=== PATIENT | female | born 1960 | race Two or more races ===

== ENCOUNTER 2025-08-02 21:13 | Inpatient (IN) | payer MEDICARE, BC, SELFPAY ==
[2025-08-02 22:04] VITALS: BP 168/85; PULSE 64; RESP 18; TEMP 36.7; O2SAT 100
--- NOTE | 2025-08-02 22:28 | PD.EDRME ---
Rapid Medical Screening Exam RME Arrival date/time: 08/02/25 21:13 65F with history of ESRD presents to ED with peritoneal cath/tube poking out of stomach. Chief Complaint: General Adult/Misc Complain Time Seen by Provider: 08/02/25 22:30 Vital signs: Vital Signs Temperature 98.0 F 08/02/25 22:04 Pulse Rate 64 08/02/25 22:04 Respiratory Rate 18 08/02/25 22:04 Blood Pressure 168/85 H 08/02/25 22:04 Pulse Oximetry (%) 100 08/02/25 22:04 Oxygen Delivery Method Room Air 08/02/25 22:04 Exam: Well-appearing Clinical Impression: Cath dysfuction vs need for IR
--- NOTE | 2025-08-02 23:45 | PC.NURSE ---
Pt presented from Home with family member c/o abd pain at dialysis cath site, tube protruding and purulent drainage from site, wound bed has some noted edema, redness and foul odor. Pt is a/o 4, gcs 15 verbalizes all needs VSS at this time
[2025-08-03] VITALS (25 sets, daily range): BP systolic 114–152; BP diastolic 60–85; PULSE 53–585; RESP 14–18; TEMP 36.3–36.9; O2SAT 94–100
--- NOTE | 2025-08-03 | XR_ITS ---
MRI abdomen, without contrast. MRCP Date and time of exam: August 03, 2025, 1812 hours INDICATIONS: Upper abdominal pain this week, gallstones, thickened gallbladder wall 0.37 cm, enlarged common bile duct 8 mm on gallbladder sonogram today Technique: Multiple axial and coronal images of the abdomen have been obtained with the Siemens 1.5T MRI scanner. Images obtained included T1 weighted transverse images, T2-weighted transverse images, T2-weighted transverse images fat-suppressed, T2 weighted haste fat suppressed transverse images, T1 weighted images, in and out of phase images, T2-weighted coronal images, breath hold, T2 weighted haze coronal images as well as T2 weighted coronal thick slab images, MRCP. Findings: Mild intrahepatic biliary tract dilatation Multiple gallstones No definite gallbladder wall edema Abnormal enlargement common hepatic duct 9 mm Common bile duct 7 mm Truncation of the distal common bile duct, meniscus defect, coronal image 12, 4 mm, consistent with impacted stone No pancreatitis Spleen is not enlarged No hydronephrosis, end-stage atrophic atrophic left kidney IMPRESSION: Cholelithiasis, negative for cholecystitis Extrahepatic biliary tract obstruction secondary to 4 mm impacted stone in the distal common bile duct, recommend ERCP follow-up
[2025-08-03 03:35] LABS: Basophils # (Auto) 0.1 Thou/mm3 (0.0-0.2); Basophils % (Auto) 1 % (0-2.5); Eosinophils # (Auto) 0.8 Thou/mm3 (0.0-0.5); Eosinophils % (Auto) 13 % (0-10); Hematocrit 34.1 % (36.0-46.0); Hemoglobin 10.7 g/dL (12.0-16.0); Immature Granulocytes Auto 0.01 Thou/mm3 (0.00-0.00); Lymphocytes # (Auto) 1.2 Thou/mm3 (1.0-4.8); Lymphocytes % (Auto) 20 % (10-50); Mean Corpuscular HGB Conc 31.4 g/dl (31.0-37.0); Mean Corpuscular Hemoglobin 30.4 pg (25.0-35.0); Mean Corpuscular Volume 97 fL (80-100); Monocytes # (Auto) 0.5 Thou/mm3 (0.0-0.8); Monocytes % (Auto) 8 % (0-12); Neutrophils # (Auto) 3.6 Thou/mm3 (1.8-7.7); Neutrophils % (Auto) 58 % (37-80); Nucleated Red Blood Cell # 0.00 Thou/mm3 (0.00-0.00); Nucleated Red Blood Cell % 0 /100 WBC (0); Platelet Count 219 Thou/mm3 (140-440); RDW Standard Deviation 60.8 fL (36.4-46.3); Red Blood Count 3.52 Miln/mm3 (4.00-5.20); White Blood Count 6.1 Thou/mm3 (3.6-11.0)
--- NOTE | 2025-08-03 03:42 | EDNOTE_ITS ---
ED General RME/HPI General Chief complaint: General Adult/Misc Complain Stated complaint: PERITONEAL DIALYSIS TUBE PROBLEM Time Seen by Provider: 08/02/25 22:30 Source: patient and family Arrival date/time: 08/02/25 21:13 Mode of arrival: ambulatory Limitations: no limitations RME / HPI RME / HPI narrative: 65F with history of ESRD presents to ED with peritoneal cath/tube poking out of stomach. The patient has a history of peritoneal catheter placement back in 2013 but currently is not being used because she has a chest wall catheter that is used for her hemodialysis, Thursday. Past medical history: Hypertension, end-stage renal disease on hemodialysis Thursday, history of transplant, peritoneal catheter. PSurg: Peritoneal dialysis catheter in 2013. History of nephrectomy History of panniculectomy 2020. Renal physician is Dr. Palma Patient also has a vascular who manages the catheter Sg Gatica Exam: Well-appearing Impression: Cath dysfuction vs need for IR Related Data Home Medications ?Medication ?Instructions ?Recorded ?Confirmed amlodipine 10 mg tablet (Norvasc) 10 mg PO QDAY #0 tab s 12/19/15 ferrous sulfate 325 mg (65 mg 325 mg PO BIDWM #0 tabs 01/16/16 iron) tablet (Feosol) Ondansetron Hcl * (ZOFRAN *) 4 mg PO Q12H PRN NAUSEA O R 01/17/16 VOMITING #0 tabs Previous Rx's ?Medication ?Instructions ?Recorded Hydrocodone/Acetaminophen * (NORCO 1 tab PO Q6H PRN AB DOMINAL PAIN 01/17/16 7.5/325 *) #30 tabs Allergies Allergy/AdvReac Type Severity Reaction Status Date / Time No Known Allergies Allergy Verified 08/02/25 21:15 Past Medical History Past Medical History NEUROLOGIC: Negative Neurological Disorders CARDIAC: Negative Cardiac Disorders or Congestive Heart Failure RESPIRATORY: Negative Respiratory Disorders or Chronic Obstructive Pulmonary Disease (COPD) GASTROINTESTINAL: Negative Gastrointestinal Disorders GENITOURINARY: Positive Genitourinary Disorders, Chronic Kidney Disease, Renal Disease, Kidney Stones (staghorn stone november 2024) and Dialysis; Negative Polycystic Kidney Disease, Neurogenic Bladder or Inguinal Hernia REPRODUCTIVE: Negative Pelvic Inflammatory Disease MUSCULOSKELETAL: Negative Musculoskeletal Disorders ENDOCRINE: Negative Endocrine Disorders, Diabetes Mellitus Type 1 or Diabetes Mellitus Type 2 HEMATOLOGIC: Positive Blood Disorders and Anemia; Negative Leukemia, Hemophilia, Thalassemia, Sickle Cell Disease or Clotting Problems OTHER HISTORY: Positive Blood Transfusions; Negative Autoimmune Disease, Blood Transfusion Reaction, Anesthesia Reactions, Organ Transplant, MRSA, Clostridium Difficile or Cancer Family History FAMILY HISTORY: Negative Family Psychiatric Problems, Family Respiratory Disorders, Family Cardiac Disorders, Family Gastrointestinal Problems, Family Genitourinary Problems, Family Endocrine Disorders, Family Reproductive Disorders or Family Musculoskeletal Disorders Surgical History SURGICAL: Positive Nephrectomy (kidney fused with colon); Negative Cardiac Surgery, Endocrine Surgery, Thyroidectomy, Ear Surgery, Bladder Sling, Ureteral Stent, Joint Replacement, Neurologic Surgery, Brain Shunt, Lumpectomy, Hysterectomy, Tubal Ligation, Section, Organ Transplant or ESWL Social History SMOKING STATUS: Never smoker ED Exam General Limitations: Present no limitations Course Orders Category Date Time Status CT Screening NOW Care 08/03/25 05:[address] abdomen pelvis w con Stat Exams 08/03/25 04:49 Ordered CBC Stat Lab 08/03/25 03:27 Completed CMP [Comprehensive Metabolic Panel] Stat Lab 08/03/25 03:27 Completed PT [Prothrombin Time with INR] Stat Lab 08/03/25 03:27 Completed PTT [Partial Thromboplastin Time] Stat Lab 08/03/25 03:27 Completed Vital Signs Vital signs: Vital Signs Temperature 98.0 F 08/02/25 22:04 Pulse Rate 64 08/02/25 22:04 Respiratory Rate 18 08/02/25 22:04 Blood Pressure 168/85 H 08/02/25 22:04 Pulse Oximetry (%) 100 08/02/25 22:04 Oxygen Delivery Method Room Air 08/02/25 22:04 Discharge Plan Prescriptions/Referrals Prescriptions/Med Rec: No Action amlodipine [Norvasc] 10 MG tablet 10 mg PO QDAY Qty: 0 ferrous sulfate [Feosol] 1 TAB tablet 325 mg PO BIDWM Qty: 0 Ondansetron Hcl * (ZOFRAN *) 4 MG tablet 4 mg PO Q12H PRN (Reason: NAUSEA OR VOMITING) Qty: 0 Hydrocodone/Acetaminophen * (NORCO 7.5/325 *) 1 TAB tablet 1 tab PO Q6H PRN (Reason: ABDOMINAL PAIN) Qty: 30 0RF Referrals: Ingrid Putnam DO [Primary Care Provider] - In 1 week Problem List Clinical Impression: Complicated wound infection Patient/Caregiver Discharge Instructions Print Language: Arabic MDM Narrative MDM hospital course (for use when minimal MDM required): 65F with history of ESRD presents to ED with peritoneal cath/tube poking out of stomach. The patient has a history of peritoneal catheter placement back in 2013 but currently is not being used because she has a chest wall catheter that is used for her hemodialysis, Thursday. Past medical history: Hypertension, end-stage renal disease on hemodialysis Thursday, history of transplant, peritoneal catheter. PSurg: Peritoneal dialysis catheter in 2013. History of nephrectomy History of panniculectomy 2020. Renal physician is Dr. Palma Patient also has a vascular who manages the catheter Sg Gatica Patient presents with an open wound on the abdomen and right where the peritoneal dialysis catheter is in place. There is obvious minimal discharge which is yellow. It is minimally tender overlying the area. Otherwise on the lower bikini line area she has a pannicular fold well-healed scar. Signed out to Dr. Street at 0600 pending results of the CT scan, the patient will need hemodialysis because she is getting CT with IV contrast, and final disposition for possible IV antibiotics. Clinical Information Provided by: family Medical Records reviewed None Labs/Rad/Tests considered, not ordered None Chronic Illness/Social Conditions which may negatively complicate care or outcome(s)-explain: other (End-stage renal disease on hemodialysis) Explain: Past medical history: Hypertension, end-stage renal disease on hemodialysis Thursday, history of transplant, peritoneal catheter. PSurg: Peritoneal dialysis catheter in 2013. History of nephrectomy History of panniculectomy 2020. EKG EKG not done Labs Labs: interpreted by ut Lab(s) Interpretation(s): White count is 6, hemoglobin 10/34, consistent with anemia, platelets 219 and normal. Sodium 142 normal, potassium 4.8. Chloride 105. CO2 normal at 27. BUN/creatinine elevated at 39/6.0. This consistent with chronic renal sufficiency on end-stage hemodialysis. Glucose is normal at 86. LFTs are normal. Imaging Imaging interpretation: interpreted by ut Medication Administration(s) As above. Diagnosis Differential Diagnosis ED Complaint MDM: Abscess, wound infection, dehiscence, catheter malfunction
[2025-08-03 03:51] LABS: INR 1.0 (0.9-1.3); Partial Thromboplastin Time 31.4 Seconds (22.0-36.0); Prothrombin Time 11.0 Seconds (9.0-12.2)
[2025-08-03 03:54] LABS: Alanine Aminotransferase 10 U/L (10-49); Albumin, Serum 3.2 gm/dL (3.4-4.8); Albumin/Globulin Ratio 1.0 (1.2-2.2); Alkaline Phosphatase 106 U/L (46-116); Anion Gap 10 (7-16); Aspartate Amino Transferase 21 U/L (0-34); BUN/Creatinine Ratio 7 Ratio (12-20); Bilirubin,Total 0.3 mg/dL (0.3-1.2); Blood Urea Nitrogen 39 mg/dL (9-23); Calcium 8.4 mg/dL (8.3-10.6); Calcium (Corrected) 9.0 mg/dL (8.5-10.1); Carbon Dioxide 27.5 mMol/L (20.0-31.0); Chloride 105 mMol/L (98-107); Creatinine (Component) 6.0 mg/dL (0.6-1.3); Globulin 3.3 gm/dL (2.3-3.5); Glucose 86 mg/dL (74-106); Osmolality,Calculated 291 (275-295); Potassium 4.8 mMol/L (3.4-5.1); Sodium 142 mMol/L (136-145); Total Protein 6.5 gm/dL (5.7-8.2); eGFR 7 See Note
--- NOTE | 2025-08-03 04:49 | XR_ITS ---
Examination: CT abdomen with intravenous contrast CT pelvis with intravenous contrast 2-D coronal reconstructions 2-D sagittal reconstructions Date and time of exam: August 03, 2025, 0744 hours INDICATIONS: Generalized abdominal pain 2 weeks. CTDI: vol (mGy) 7.67 DLP: (mGycm) 418 Technique: Multiple axial sections of the abdomen and pelvis have been obtained. 64 slice high-resolution scanner used. 3 mm axial sections have been obtained, post intravenous injection 60 cc Isovue 370 2-D sagittal, coronal reconstructions obtained. Low dose protocols were performed. One or more of the following dose reduction techniques were used; automated exposure control, adjustment of the mA and/or KV according to patient size, use of iterative reconstruction technique. Findings: Mild enlargement cardiac contour Retrocardiac gastric hernia 14 mm pulmonary nodule irregular margins right lower lobe, image 21 Minimal pleural disease Cirrhosis, liver nodular in contour Distended gallbladder with gallstones No splenic lesion Enlargement common bile duct 9 mm no definite stones No pancreatic mass Aorta normal size No right kidney visualize End-stage calcified atrophic left kidney Aorta normal size Anasarca No bowel obstruction Peritoneal dialysis catheter Mass in the anterior pelvic wall, axial image 127, coronal image 94, with necrotic center, measuring 26 x 29 x 35 mm Atrophic calcified uterus No bowel obstruction Contracted urinary bladder Cortical erosion involving contiguous margins L3-L4 moderate narrowing hip joints IMPRESSION: 14 mm pulmonary nodule irregular margins right lower lobe, consider CT chest without contrast follow-up Cirrhosis Recommend about a biliary sonography to assess distended gallbladder with gallstones, enlarged common bile duct End-stage calcified atrophic left kidney No bowel obstruction Peritoneal dialysis catheter Necrotic mass in the anterior pelvic wall, 26 x 29 x 35 mm, differential would include abscess
[2025-08-03] MEDS: VANCOMYCIN/NS 1 GM IVPB 200 ML IV (06:23)
--- NOTE | 2025-08-03 09:12 | XR_ITS ---
Examination: Abdomen sonogram, Limited Date and time of exam: August 03 g in 2024, 1402 hours INDICATIONS: Distended gallbladder, gallstones, enlarged common bile duct on CT abdomen study today Technique: Real-time barrett scale transabdominal sonographic images of the upper abdomen obtained. Findings: Gallstones Gallbladder wall 0.37 cm no edema Common bile duct enlarged 0.8 cm no stones Pancreatic head 2.9 cm Liver 14.5 cm no liver lesions Normal hepatopetal portal venous flow Patent IVC IMPRESSION: Cholelithiasis Borderline thickening gallbladder wall Enlarged common bile duct If biliary colic is a clinical consideration, suggest MRCP follow-up
--- NOTE | 2025-08-03 10:01 | ESCONSULT_ITS ---
HPI Data of Consult Consult date: 08/03/25 Primary Care Provider: Ingrid Putnam DO Consult Narrative Reason for consult: ESRD, need for HD History of present illness: Patient is a 65 year old female with past medical history of ESRD s/p right nephrectomy on dialysis //Thu who presents to the ED for protrusion of peritoneal catheter at right lower abdomen, originally placed in 2013. Per daughter at bedside, wound has been ongoing for the past month, previously received IV abx at dialysis center 2 weeks ago. Originally also had wound that opened below catheter site but healed without intervention. Had appointment on 08/[address] Ng in [place] for removal of peritoneal catheter. Patient has right chest HD catheter in place already. Patient is compliant with dialysis sessions, lives in [place]. Last HD session on Thursday. CT A/P with contrast showed necrotic mass in anterior pelvic wall suspicious for abscess at catheter site, also noted end stage calcified atrophic left kidney. Received urgent HD today. Surgeon Dr. Thomas will schedule patient for infected PD catheter removal and abscess drainage tomorrow morning. Given vanc in ED. Nephrology consulted for dialysis s/p CT A/P with contrast. Past Medical History: as above Family History: non contributory Surgical History: Right nephrectomy, panniculectomy (2020) Social History: Denies history of smoking, denies current alcohol use, denies recreational drug use Current Medications: pending med rec Allergies: No known drug allergies cc:: cc: Exam Vital Signs Temp Pulse Resp BP Pulse Ox O2 Del Method 98.4 F 60 16 137/78 H 98 Room Air 08/03/25 08:58 08/03/25 08:58 08/03/25 08:58 08/03/25 08:58 08/03/25 08:58 08/03/25 08:58 Narrative Exam Physical Exam General: Awake and in no acute distress. Conversational and non-toxic appearing. HEENT: Normocephalic, atraumatic, mucous membranes moist. Heart: Regular rate and rhythm, normal S1 and S2, no murmurs. Lungs: Clear to auscultation with no wheezing or crackles. Abdomen: Soft, nondistended, nontender, positive bowel sounds. No guarding or rebound tenderness. Peritoneal dialysis catheter in right lower abdomen, also protruding from open wound medially, draining non pustular fluid, not malodorous but has surrounding erythema. Mild tenderness. Another similar but healed wound below catheter site. Neurologic: Alert and oriented x3, no gross neurological deficit, and patient able to move all 4 extremities. Extremities: No edema. Skin: No rash or ecchymoses. Results Labs 08/04/25 04:10 08/04/25 04:10 Labs: Short CBC 08/03/25 Range/Units 03:27 WBC 6.1 (3.6-11.0) Thou/mm3 Hgb 10.7 L (12.0-16.0) g/dL Hct 34.1 L (36.0-46.0) % Plt Count 219 (140-440) Thou/mm3 BMP 08/03/25 03:27 Sodium 142 Potassium 4.8 Chloride 105 Carbon Dioxide 27.5 BUN 39 H Creatinine 6.0 H* Glucose 86 Calcium 8.4 Liver Function 08/03/25 Range/Units 03:27 Total Bilirubin 0.3 (0.3-1.2) mg/dL AST 21 (0-34) U/L ALT 10 (10-49) U/L Alkaline Phosphatase 106 (46-116) U/L Albumin 3.2 L (3.4-4.8) gm/dL Quality Measures Quality Measures none Advance care planning discussed with:: patient Medications Home Medications and Allergies Home Medications ?Medication ?Instructions ?Recorded ?Confirmed ?Type amlodipine 10 mg tablet (Norvasc) 10 mg PO QDAY #0 tab s 12/19/15 08/04/25 History ferrous sulfate 325 mg (65 mg 325 mg PO BIDWM #0 tabs 01/16/16 08/04/25 History iron) tablet (Feosol) Ondansetron Hcl * (ZOFRAN *) 4 mg PO Q12H PRN NAUSEA O R 01/17/16 08/04/25 History VOMITING #0 tabs calcium acetate 667 mg tablet 667 mg PO TIDWMEAL 08/0408/04/25 History midodrine 10 mg tablet 10 mg PO BID PRN low blood p ressure 08/04/25 08/04/25 History sertraline 50 mg tablet 50 mg PO DAILY 08/04/2501/22 History vitamin B complex-vitamin C-folic 1 tab PO QDAY 08/04/25 History acid 0.8 mg tablet (Dialyvite 800) Allergies Allergy/AdvReac Type Severity Reaction Status Date / Time PUMPKIN SEEDS Allergy Severe SWELLING Uncoded 08/04/25 05:57 AROUND MOUTH AND ITCHINESS Visit Medications Albumin Human (Albuminex 25% Ivpb) 25 gm in 100 mls @ 100 mls/hr IV Q30MIN PRN PRN Reason: DIALYSIS Discontinued Medications Vancomycin/Sodium Chloride (Vancomycin/Ns 1 Gm Ivpb) 200 mls @ 120 mls/hr IV X1 ONE Stop: 08/03/25 07:54 Last Infusion: 08/03/25 08:47 Dose: Infused Pharmacy Consult (Vancomycin Pharmacy To Dose 1 Each Each) 1 each IV X1 ONE Stop: 08/03/25 05:38 Assessment & Plan Plan Patient is a 65 year old female with past medical history of ESRD s/p right nephrectomy on dialysis //Thu who presents to the ED for protrusion of peritoneal catheter at right lower abdomen. Nephrology consulted for urgent dialysis s/p CT with contrast. #ESRD on dialysis TTS #S/p right nephrectomy - CT A/P with contrast showed necrotic mass in anterior pelvic wall suspicious for abscess at catheter site, also noted end stage calcified atrophic left kidney. Plan: - Scheduled for urgent dialysis today #Necrotic mass at anterior pelvic wall - Has had ongoing wounds around catheter site for the past 3 weeks per patient daughter. Completed IV abx course at dialysis session about 2 weeks ago. Initially, she developed open wound below catheter site, now catheter is now protruding from open wound medially from insertion site. - PD catheter initially placed in 2013. Scheduled for removal with surgeon Dr. Ng in [place] on 08/09. Plan: - Surgery consulted by ED, will remove PD catheter and drain abscess tomorrow Thank you for your consultation, please do not hesitate to reach out if you have any question or concern Patient plan of care was discussed with the attending physician, Dr. Palma. Clarisa Buck DO, PGY-1 Attending Provider Attestation/Addendum Patient currently seen and examined with resident physician Dr. Buck. Note reviewed, agree with findings and recommendations. Care discussed with Dr. Thomas-Will DC PD catheter today. Patient with infected PD catheter site n.p.o. after midnight. Next dialysis scheduled for tomorrow Patient from [place].
--- NOTE | 2025-08-03 10:35 | PD.EDADDENDU ---
Emergency Room Addendum Addendum Narrative: 0600: Care assumed from Dr. Davis, the previous shift emergency physician. Past medical, surgical, social and family history reviewed. Vitals and home medications reviewed. I will assume the care of the patient at this time, pending CTr, hemodialysis, and final disposition. Please refer to the emergency department record for history and examination from initial visit.?The following addendum documentation note is intended to reflect any pending information, findings, or radiology results not included in the patient?s initial chart. I spoke with communications advisor Dr. Palma. Discussed patients PMHx, HPI, ED course, exam findings, labs results and need for dialysis after receiving contrast. Dr. Palma states she will arrange for the patient to receive dialysis. CT abdomen/pelvis shows Necrotic mass in the anterior pelvic wall, 26 x 29 x 35 mm, differential would include abscess and I consulted with general surgeon Dr. Thomas. Discussed patients PMHx, HPI, ED course, exam findings, labs, and radiology results. States he will take the patient to surgery tomorrow. Gallbladder ultrasound was performed and shows enlarged common bile duct. Total bilirubin is 0.3, AST 21, ALT 10, alkaline phosphate 106. MRCP was ordered. 1800p: Care signed out to Dr. Bourne pending MRCP and final disposition. RADIOLOGY Ordering Physician: Pura Davis MD Date of Service: 08/03/25 Procedure(s): CT abdomen pelvis w con Accession Number(s): [id number] cc: Ingrid Putnam DO; Ismael Rojas MD; Pura Davis MD~ Examination: CT abdomen with intravenous contrast CT pelvis with intravenous contrast 2-D coronal reconstructions 2-D sagittal reconstructions Date and time of exam: August 03, 2025, 0744 hours INDICATIONS: Generalized abdominal pain 2 weeks. CTDI: vol (mGy) 7.67 DLP: (mGycm) 418 Technique: Multiple axial sections of the abdomen and pelvis have been obtained. 64 slice high-resolution scanner used. 3 mm axial sections have been obtained, post intravenous injection 60 cc Isovue 370 2-D sagittal, coronal reconstructions obtained. Low dose protocols were performed. One or more of the following dose reduction techniques were used; automated exposure control, adjustment of the mA and/or KV according to patient size, use of iterative reconstruction technique. Findings: Mild enlargement cardiac contour Retrocardiac gastric hernia 14 mm pulmonary nodule irregular margins right lower lobe, image 21 Minimal pleural disease Cirrhosis, liver nodular in contour Distended gallbladder with gallstones No splenic lesion Enlargement common bile duct 9 mm no definite stones No pancreatic mass Aorta normal size No right kidney visualize End-stage calcified atrophic left kidney Aorta normal size Anasarca No bowel obstruction Peritoneal dialysis catheter Mass in the anterior pelvic wall, axial image 127, coronal image 94, with necrotic center, measuring 26 x 29 x 35 mm Atrophic calcified uterus No bowel obstruction Contracted urinary bladder Cortical erosion involving contiguous margins L3-L4 moderate narrowing hip joints IMPRESSION: 14 mm pulmonary nodule irregular margins right lower lobe, consider CT chest without contrast follow-up Cirrhosis Recommend about a biliary sonography to assess distended gallbladder with gallstones, enlarged common bile duct End-stage calcified atrophic left kidney No bowel obstruction Peritoneal dialysis catheter Necrotic mass in the anterior pelvic wall, 26 x 29 x 35 mm, differential would include abscess Dictated By: Ismael Rojas MD Signed By: <Electronically signed by Ismael Rojas MD in [place]> 08/03/25 0804
[2025-08-03 11:50] LABS: Hepatitis A Antibody IgM Non Reactive (Non React); Hepatitis B Core Antibody IgM Non Reactive (Non React); Hepatitis B Surface Ab Reactive (Immune) (Immune); Hepatitis B Surface Antigen Non Reactive (Non React); Hepatitis C Antibody Non Reactive (Non React)
--- NOTE | 2025-08-03 12:04 | PC.NURSE ---
PLASTIC MIXER INCREASED 200ML BLOUS ADMINISTERED TO CLEAR DIALYZER, UF GOAL INCREASED TO account for fluid administration as tolerated will cont. to monitor
--- NOTE | 2025-08-03 12:47 | PC.NURSE ---
TMP AND AUDIT CLERKS SUPERVISOR INCREASING 100ML BOLUS ADMINISTERED, MINOR CLOTTING TO VENOUS CHAMBER NOTED, POST FLUSH PRESSURES IMPROVED WILL CONT. TO MONITOR
[2025-08-03] MEDS: HEPARIN SOD INJ 1000 UNIT/ML VIAL 10 ML 3200 UNIT INDWELLCAT (13:10)
--- NOTE | 2025-08-03 13:58 | PC.NURSE ---
PT RETURNED FROM DIALYSIS AT THIS TIME.
--- NOTE | 2025-08-03 14:46 | PD.SURCONS ---
HPI Consult details Consult date: 08/03/25 Reason for consultation narrative: Infected peritoneal dialysis catheter History of present illness: 65-year-old female with history of hypertension, end-stage renal disease currently on hemodialysis, prior she was on peritoneal dialysis. She has had tunneled intraperitoneal peritoneal dialysis catheter placement since 2016. She has noted some skin infection with exposure of the tunneled aspect of peritoneal dialysis catheter. She has been eating and tolerating diet well, denies abdominal pain. She was noted to have gallstones with dilated CBD. MRCP revealed questionable 4 mm distal CBD stone, however her liver enzymes are normal. Review of Systems Constitutional Constitutional: Denies chills and Denies fever(s) Cardiovascular Cardiovascular: Denies chest pain Respiratory Respiratory: Denies cough Gastrointestinal Gastrointestinal: Reports abdominal pain, Denies nausea and Denies vomiting Hematologic/Lymphatic Hematologic/Lymphatic: Denies easy bleeding and Reports easy bruising Past Medical History Surgical History OTHER SURGICAL HX: Right nephrectomy, PD catheter placement, umbilical hernia repair, carpel tunnel release, panniculectomy Social History SMOKING STATUS: Never smoker SUBSTANCE USE: does not use ALCOHOL: Never Meds Home Medications and Allergies Home Medications ?Medication ?Instructions ?Recorded ?Confirmed ?Type amlodipine 10 mg tablet (Norvasc) 10 mg PO QDAY #0 tabs 12/19/15 08/04/25 History ferrous sulfate 325 mg (65 mg 325 mg PO BIDWM #0 tabs 01/16/16 08/04/25 History iron) tablet (Feosol) Ondansetron Hcl * (ZOFRAN *) 4 mg PO Q12H PRN NAUSEA OR 01/17/16 08/04/25 History VOMITING #0 tabs calcium acetate 667 mg tablet 667 mg PO TIDWMEAL 08/04/25 08/04/25 History midodrine 10 mg tablet 10 mg PO BID PRN low blood pressure 08/04/25 08/04/25 History sertraline 50 mg tablet 50 mg PO DAILY 08/04/25 08/04/25 History vitamin B complex-vitamin C-folic 1 tab PO QDAY 08/04/25 08/04/25 History acid 0.8 mg tablet (Dialyvite 800) Allergies Allergy/AdvReac Type Severity Reaction Status Date / Time PUMPKIN SEEDS Allergy Severe SWELLING Uncoded 08/04/25 05:57 AROUND MOUTH AND ITCHINESS Exam Vital Signs Temp Pulse Resp BP Pulse Ox O2 Del Method 98.4 F 60 15 146/76 H 98 Room Air 08/03/25 13:57 08/03/25 13:57 08/03/25 13:57 08/03/25 13:57 08/03/25 13:57 08/03/25 13:57 Constitutional Constitutional: no acute distress Routine Abdominal Exam Comments: Abdomen is soft and nondistended. She has an open wound on the left lower aspect of the abdomen where the PD catheter was tunneled with catheter being exposed. She also has small open wound in the left lower quadrant at her panniculectomy scar Assessment & Plan Problem List (1) Peritoneal dialysis catheter exit site infection: Status: Acute Plan Keep n.p.o. after midnight. Will plan for removal of peritoneal dialysis catheter tomorrow. Risks include but not limited to infection, bleeding, chronic nonhealing wound, need for further procedure and or operation, pneumonia and blood clot discussed with the patient and her daughter. Benefits and alternatives explained to them, all their questions answered, they agreed consented to proceed with the operation. (1) Peritoneal dialysis catheter exit site infection Qualifiers: Encounter type: initial encounter Qualified Code(s): T85.71XA - Infection and inflammatory reaction due to peritoneal dialysis catheter, initial encounter
--- NOTE | 2025-08-03 19:03 | EDNOTE_ITS ---
Emergency Room Addendum Addendum Narrative: 1800: Care assumed from Dr. Street, the previous shift emergency physician. Past medical, surgical, social and family history reviewed. Vitals and home medications reviewed. Results and treatment plan discussed. I will assume the care of the patient at this time and will follow the patient, pending MRCP. Please refer to the emergency department record for history and examination from initial visit. 65yo female who is transitioning from peritoneal to hemodialysis who noted her peritoneal catheter was eroding through her skin in the left lower abdomen. During workup, patient was found to have evidence of possible cholecystitis and MRCP was recommended. Findings included an impacted CBD stone (choledocholithiasis). This was an incidental finding as patient has likely had this condition for a period of time. In the absence of fever, toxicity, leukocytosis, or tenderness of the RUQ, will defer on immediate treatment and refer as outpatient. Regarding infected malfunction catheter, case discussed with on-call surgeon, who intends to remove it in the AM. Hospitalist to admit. Dx: cellulitis of the left lower abdomen, defunct peritoneal catheter, choledocholithiasis RADIOLOGY RESULTS: [facility] Report Signed Patient: WENDY VÁSQUEZ. Record#: [id number] Birthdate: 1960 Age/Sex: 65 / F Location: [facility] Attending Dr: Ordering Physician: Aric Street MD Date of Service: 08/03/25 Procedure(s): MR MRCP Accession Number(s): [id number] cc: Aric Street MD; Ingrid Putnam DO; Ismael Rojas MD~ MRI abdomen, without contrast. MRCP Date and time of exam: August 03, 2025, 1812 hours INDICATIONS: Upper abdominal pain this week, gallstones, thickened gallbladder wall 0.37 cm, enlarged common bile duct 8 mm on gallbladder sonogram today Technique: Multiple axial and coronal images of the abdomen have been obtained with the Siemens 1.5T MRI scanner. Images obtained included T1 weighted transverse images, T2-weighted transverse images, T2-weighted transverse images fat-suppressed, T2 weighted haste fat suppressed transverse images, T1 weighted images, in and out of phase images, T2-weighted coronal images, breath hold, T2 weighted haze coronal images as well as T2 weighted coronal thick slab images, MRCP. Findings: Mild intrahepatic biliary tract dilatation Multiple gallstones No definite gallbladder wall edema Abnormal enlargement common hepatic duct 9 mm Common bile duct 7 mm Truncation of the distal common bile duct, meniscus defect, coronal image 12, 4 mm, consistent with impacted stone No pancreatitis Spleen is not enlarged No hydronephrosis, end-stage atrophic atrophic left kidney IMPRESSION: Cholelithiasis, negative for cholecystitis Extrahepatic biliary tract obstruction secondary to 4 mm impacted stone in the distal common bile duct, recommend ERCP follow-up Dictated By: Ismael Rojas MD Signed By: <Electronically signed by Ismael Rojas MD in [place]> 08/03/251928
[2025-08-03 22:04] LABS: Alanine Aminotransferase 8 U/L (10-49); Albumin, Serum 3.2 gm/dL (3.4-4.8); Albumin/Globulin Ratio 1.0 (1.2-2.2); Alkaline Phosphatase 110 U/L (46-116); Anion Gap 10 (7-16); Aspartate Amino Transferase 21 U/L (0-34); BUN/Creatinine Ratio 6 Ratio (12-20); Bilirubin,Direct 0.1 mg/dL (0.0-0.3); Bilirubin,Total 0.2 mg/dL (0.3-1.2); Blood Urea Nitrogen 28 mg/dL (9-23); Calcium 8.4 mg/dL (8.3-10.6); Calcium (Corrected) 9.0 mg/dL (8.5-10.1); Carbon Dioxide 27.2 mMol/L (20.0-31.0); Chloride 103 mMol/L (98-107); Creatinine (Component) 4.6 mg/dL (0.6-1.3); Globulin 3.2 gm/dL (2.3-3.5); Glucose 90 mg/dL (74-106); Osmolality,Calculated 284 (275-295); Potassium 4.6 mMol/L (3.4-5.1); Sodium 140 mMol/L (136-145); Total Protein 6.4 gm/dL (5.7-8.2); eGFR 10 See Note
--- NOTE | 2025-08-03 22:40 | ESHP_ITS ---
<Statement entered by Christian Davidson MD - 08/08/25 02:35> I have personally seen and examined the patient, agree with residents assessment and plan Patient plan of care was discussed with the attending physician, Dr. Jose Rafael Davidson, PGY2 Documentation for date of: 08/03/25 HPI History of Present Illness Chief complaint: Protruding peritoneal dialysis catheter History of present illness: This patient is a 65-year-old female with a history of ESRD on HD (TTS) and status post right nephrectomy who presented to [facility] ED on 08/03 for protrusion of her peritoneal dialysis catheter at her right lower abdomen. Patient was admitted for surgical removal of peritoneal dialysis catheter. The patient initially developed this wound about a month ago, although the patient is not sure how this occurred. The patient had previously received IV antibiotics at her dialysis center about 2 weeks ago, and originally had appointment on 08/[address] Owens in [place] for removal of the peritoneal dialysis catheter, however patient noticed that the dialysis catheter has been protruding out more today and so she sought care at [facility] ED for further management. In the ED, the patient received a CT abdomen/pelvis for further investigation of her protruding peritoneal dialysis catheter, which showed an necrotic mass in the anterior pelvic wall measuring 26 x 29 x 35 mm, suggestive of an abscess. Incidentally, the patient was found to have a distended gallbladder with gallstones and a large common bile duct. This was supported with gallbladder ultrasound, and so MRCP was pursued, which showed extrahepatic biliary tract obstruction due to a 4 mm impacted stone in the distal common bile duct. The case was discussed with the general surgeon, Dr Thomas, who plans for removal of the patient's peritoneal dialysis catheter tomorrow morning and recommends outpatient ERCP instead of transferring the patient to an outside facility for ERCP as the patient has no fever, leukocytosis, jaundice, or tenderness in the right upper quadrant as to warrant an emergent transfer for ERCP. Past Surgical History: Peritoneal dialysis catheter placement in 2013 Allergies (w/ Reactions): NKDA Family History: Non-contributory Alcohol Intake: N/A Tobacco/Vape Use: N/A Other Drug Use: N/A Recent Travel History: N/A Exam Vital Signs Temp Pulse Resp BP Pulse Ox O2 Del Method 98.2 F 74 16 114/68 98 Room Air 08/03/25 20:08 08/03/25 20:08 08/03/25 20:08 08/03/25 20:08 08/03/25 20:08 08/03/25 20:08 Narrative Exam Physical Exam: General: Alert, no acute distress. Temporary dialysis catheter in right upper chest. Skin: Warm, dry, intact. Head: Normocephalic, atraumatic. Eye: Normal conjunctiva, PERRL. Throat: Oral mucosa moist. No obvious lesions in oropharynx. Cardiovascular: Regular rate and rhythm, no murmur, +S1/S2. Respiratory: Lungs are clear to auscultation, respirations unlabored, no crackles, no wheezing. Gastrointestinal: Soft, nontender, non-distended. Peritoneal dialysis catheter in left lower abdomen, also protruding from open wound medially, draining pustular fluid, not malodorous but has surrounding erythema. Significant tenderness to light palpation. Another similar but healed wound below catheter site. Extremities: No edema, no cyanosis, no clubbing. 2+ radial pulse bilaterally, 2+ pedal pulse bilaterally. Neuro: No focal deficits observed. Conversant, moving all extremities. No overt cerebellar signs/incoordination. Psychiatric: Cooperative, appropriate affect. Results: Labs 08/06/25 04:37 08/06/25 04:37 Labs: Short CBC 08/03/25 Range/Units 03:27 WBC 6.1 (3.6-11.0) Thou/mm3 Hgb 10.7 L (12.0-16.0) g/dL Hct 34.1 L (36.0-46.0) % Plt Count 219 (140-440) Thou/mm3 [facility] 08/03/25 08/03/25 03:27 21:27 Sodium 142 140 Potassium 4.8 4.6 Chloride 105 103 Carbon Dioxide 27.5 27.2 BUN 39 H 28 H Creatinine 6.0 H* 4.6 H* D Glucose 86 90 Calcium 8.4 8.4 Liver Function 08/03/25 08/03/25 Range/Units 03:27 21:27 Total Bilirubin 0.3 0.2 L (0.3-1.2) mg/dL Direct Bilirubin 0.1 (0.0-0.3) mg/dL AST 21 21 (0-34) U/L ALT 10 8 L (10-49) U/L Alkaline Phosphatase 106 110 (46-116) U/L Albumin 3.2 L 3.2 L (3.4-4.8) gm/dL Quality Measures Quality Measures VTE prophylaxis Advance care planning discussed with:: patient Medications Home Medications and Allergies Home Medications ?Medication ?Instructions ?Recorded ?Confirmed ?Type amlodipine 10 mg tablet (Norvasc) 10 mg PO QDAY #0 tab s 12/19/15 08/04/25 History Held on 08/06/25. Instructions: Hold until you follow-up with your PCP calcium acetate 667 mg tablet 667 mg PO TIDWMEAL 08/0408/04/25 History midodrine 10 mg tablet 10 mg PO BID PRN low blood p ressure 08/04/25 08/04/25 History sertraline 50 mg tablet 50 mg PO DAILY 08/04/2501/22 History vitamin B complex-vitamin C-folic 1 tab PO QDAY 08/04/25 History acid 0.8 mg tablet (Dialyvite 800) Allergies Allergy/AdvReac Type Severity Reaction Status Date / Time PUMPKIN SEEDS Allergy Severe SWELLING Uncoded 08/04/25 05:57 AROUND MOUTH AND ITCHINESS Visit Medications Acetaminophen (Acetaminophen 325 Mg Tablet) 650 mg PO Q6H PRN PRN Reason: Fever >101.5 or pain 1-3 Stop: 09/02/25 22:31 Heparin Sodium (Porcine) (Heparin Sod Inj 1000 Unit/Ml Vial 10 Ml) 3,200 unit INDWELLCAT PRN PRN PRN Reason: DIALYSIS Stop: 08/17/25 12:06 Albumin Human (Albuminex 25% Ivpb) 25 gm in 100 mls @ 100 mls/hr IV Q30MIN PRN PRN Reason: DIALYSIS Ondansetron HCl (Ondansetron Inj 2 Mg/Ml Inj 2 Ml) 4 mg IVP Q6H PRN; Protocol PRN Reason: NAUSEA OR VOMITING Stop: 09/02/25 22:31 Discontinued Medications Vancomycin/Sodium Chloride (Vancomycin/Ns 1 Gm Ivpb) 200 mls @ 120 mls/hr IV X1 ONE Stop: 08/03/25 07:54 Last Infusion: 08/03/25 08:47 Dose: Infused Pharmacy Consult (Vancomycin Pharmacy To Dose 1 Each Each) 1 each IV X1 ONE Stop: 08/03/25 05:38 Last Admin: 08/03/25 07:05 Dose: Not Given Assessment & Plan Plan This patient is a 65-year-old female with a history of ESRD on HD (TTS) and status post right nephrectomy who presented to [facility] ED on 08/03 for protrusion of her peritoneal dialysis catheter at her right lower abdomen. Patient was admitted for surgical removal of peritoneal dialysis catheter. #Infection of peritoneal dialysis catheter #Left lower abdomen cellulitis #Anterior pelvic wall necrotic mass Patient has had ongoing issues due to a wound in her abdomen. Patient has sought care at [facility] ED due to protrusion of her peritoneal dialysis catheter. Per chart review, ongoing wounds at catheter site for the past 3 weeks and patient has completed a course of IV antibiotics after dialysis sessions about 2 weeks ago. On admission, left lower abdomen significantly tender to light palpation and draining purulent fluid with erythema surrounding peritoneal dialysis catheter site. Diagnostic: CT abdomen/pelvis on 08/03 shows necrotic mass in anterior pelvic wall measuring 26 x 29 x 35 mm, suggestive of abscess Treatment: General surgery consulted, appreciate recommendations Removal of defunct peritoneal dialysis catheter planned for 08/04 in the AM Keflex 500 mg 4 times daily Prophylactic treatment with fluconazole 100 mg daily Wound culture ordered, pending Pain control with [place] 1 tablet every 12 hours as needed Referral to wound care ordered #Choledocolithiasis Patient noted to have choledocholithiasis with impaction incidentally on imaging. Patient remains afebrile, has no leukocytosis, no jaundice, and no right upper quadrant pain to suggest acute cholangitis. Diagnostic: MRCP on 08/03 showed extrahepatic biliary tree obstruction secondary to 4 mm impacted stone in the distal common bile duct Treatment: ED physician discussed case with general surgery, Dr Thomas, who recommends management of patient's defunct peritoneal dialysis catheter and outpatient follow-up for ERCP Will continue to monitor with daily CMP to assess for possible development of cholangitis, and will transfer patient if any signs of cholangitis identified #ESRD on peritoneal dialysis (TTS) #Status post right nephrectomy Patient has a history of ESRD and is on peritoneal dialysis, however the patient is not aware of the reason why she has ESRD. Treatment: Nephrology consulted, appreciate recommendations Temporary dialysis catheter has been placed, scheduled for urgent dialysis sessions per nephrology Avoid nephrotoxic drugs, renally dose medications DVT Prophylaxis: SCDs GI Prophylaxis: N/A Bowel: N/A Diet: NPO Soto: N/A Lines: PIV, Temporary dialysis catheter right chest, Peritoneal dialysis catheter lower right abdomen Antibiotics: Keflex and Fluconazole Code Status: FULL Reason for Hospitalization: Surgical removal of peritoneal dialysis catheter Other Barriers to Discharge: Surgery Patient plan of care was discussed with the senior resident Dr. Davidson (PGY-2) and attending physician Dr. Jose Rafael Tracy, PGY1 Attending Provider Attestation/Addendum After examination of the patient and review of the clinical data I feel that this patient needs admission to the hospital for further treatment/evaluation. Plan of care discussed with patient and is in agreement. I Mariza Mantilla MD, attest that I was physically present for gordon portions of evaluation, and examined patient, labs and imagings and plan of care were discussed with IM residents team, and I agree with the findings and plans documented above.
[2025-08-04] VITALS (15 sets, daily range): BP systolic 125–157; BP diastolic 63–86; PULSE 54–67; RESP 13–99; TEMP 35.7–37.1; O2SAT 92–99; BMI 28.8
[2025-08-04] MEDS: FLUCONAZOLE 100 MG TABLET PO ×2 (01:11→08:50)
[2025-08-04 05:53] LABS: Basophils # (Auto) 0.1 Thou/mm3 (0.0-0.2); Basophils % (Auto) 1 % (0-2.5); Eosinophils # (Auto) 0.7 Thou/mm3 (0.0-0.5); Eosinophils % (Auto) 13 % (0-10); Hematocrit 34.2 % (36.0-46.0); Hemoglobin 10.3 g/dL (12.0-16.0); Immature Granulocytes Auto 0.01 Thou/mm3 (0.00-0.00); Lymphocytes # (Auto) 1.1 Thou/mm3 (1.0-4.8); Lymphocytes % (Auto) 20 % (10-50); Mean Corpuscular HGB Conc 30.1 g/dl (31.0-37.0); Mean Corpuscular Hemoglobin 29.8 pg (25.0-35.0); Mean Corpuscular Volume 99 fL (80-100); Monocytes # (Auto) 0.5 Thou/mm3 (0.0-0.8); Monocytes % (Auto) 8 % (0-12); Neutrophils # (Auto) 3.2 Thou/mm3 (1.8-7.7); Neutrophils % (Auto) 57 % (37-80); Nucleated Red Blood Cell # 0.00 Thou/mm3 (0.00-0.00); Nucleated Red Blood Cell % 0 /100 WBC (0); Platelet Count 185 Thou/mm3 (140-440); RDW Standard Deviation 61.0 fL (36.4-46.3); Red Blood Count 3.46 Miln/mm3 (4.00-5.20); White Blood Count 5.6 Thou/mm3 (3.6-11.0)
[2025-08-04 06:05] LABS: INR 1.1 (0.9-1.3); Partial Thromboplastin Time 33.8 Seconds (22.0-36.0); Prothrombin Time 11.2 Seconds (9.0-12.2)
[2025-08-04 06:29] LABS: Alanine Aminotransferase 8 U/L (10-49); Albumin, Serum 3.1 gm/dL (3.4-4.8); Albumin/Globulin Ratio 1.0 (1.2-2.2); Alkaline Phosphatase 108 U/L (46-116); Anion Gap 9 (7-16); Aspartate Amino Transferase 19 U/L (0-34); BUN/Creatinine Ratio 6 Ratio (12-20); Bilirubin,Total 0.3 mg/dL (0.3-1.2); Blood Urea Nitrogen 31 mg/dL (9-23); Calcium 8.3 mg/dL (8.3-10.6); Calcium (Corrected) 9.0 mg/dL (8.5-10.1); Carbon Dioxide 26.9 mMol/L (20.0-31.0); Chloride 105 mMol/L (98-107); Creatinine (Component) 4.9 mg/dL (0.6-1.3); Globulin 3.2 gm/dL (2.3-3.5); Glucose 74 mg/dL (74-106); Magnesium 2.2 mg/dL (1.6-2.6); Osmolality,Calculated 286 (275-295); Phosphorous 4.5 mg/dL (2.4-5.1); Potassium 4.8 mMol/L (3.4-5.1); Sodium 141 mMol/L (136-145); Total Protein 6.3 gm/dL (5.7-8.2); eGFR 9 See Note
--- NOTE | 2025-08-04 09:49 | ESPR_ITS ---
Documentation for date of: 08/04/25 Subjective Subjective Interval history: History of present illness: Patient is a 65 year old female with past medical history of ESRD s/p right nephrectomy on dialysis //Thu who presents to the ED for protrusion of peritoneal catheter at right lower abdomen, originally placed in 2013. Per daughter at bedside, wound has been ongoing for the past month, previously received IV abx at dialysis center 2 weeks ago. Originally also had wound that opened below catheter site but healed without intervention. Had appointment on 08/[address] Ng in [place] for removal of peritoneal catheter. Patient has right chest HD catheter in place already. Patient is compliant with dialysis sessions, lives in [place]. Last HD session on Thursday. CT A/P with contrast showed necrotic mass in anterior pelvic wall suspicious for abscess at catheter site, also noted end stage calcified atrophic left kidney. Received urgent HD today. Surgeon Dr. Thomas will schedule patient for infected PD catheter removal and abscess drainage tomorrow morning. Given vanc in ED. Nephrology consulted for dialysis s/p CT A/P with contrast. Past Medical History: as above Family History: non contributory Surgical History: Right nephrectomy, panniculectomy (2020) Social History: Denies history of smoking, denies current alcohol use, denies recreational drug use Current Medications: pending med rec Allergies: No known drug allergies 08/04/25: Admitted overnight for removal of peritoneal dialysis catheter by surgery. Patient seen and examined at bedside. No complaints. Plan for I&D and dialysis catheter removal later this afternoon. Exam Vital Signs Temp Pulse Resp BP Pulse Ox O2 Del Method 97.1 F 57 L 18 127/63 99 Room Air 08/04/25 08:00 08/04/25 08:00 08/04/25 08:00 08/04/25 08:00 08/04/25 08:00 08/04/25 08:00 Narrative Exam Physical Exam General: Awake and in no acute distress. Conversational and non-toxic appearing. HEENT: Normocephalic, atraumatic, mucous membranes moist. Heart: Regular rate and rhythm, normal S1 and S2, no murmurs. Lungs: Clear to auscultation with no wheezing or crackles. Abdomen: Soft, nondistended, nontender, positive bowel sounds. No guarding or rebound tenderness. Peritoneal dialysis catheter in right lower abdomen, also protruding from open wound medially, draining non pustular fluid, not malodorous but has surrounding erythema. Mild tenderness. Another similar but healed wound below catheter site. Neurologic: Alert and oriented x3, no gross neurological deficit, and patient able to move all 4 extremities. Extremities: No edema. Skin: No rash or ecchymoses. Objective Labs 08/04/25 04:10 08/04/25 04:10 Labs: Laboratory Results - last 24 hr 08/03/25 08/03/25 08/04/25 03:27 21:27 04:10 WBC 5.6 RBC 3.46 L Hgb 10.3 L Hct 34.2 L MCV 99 MCH 29.8 MCHC 30.1 L RDW Std Deviation 61.0 H Plt Count 185 D Neut % (Auto) 57 Lymph % (Auto) 20 [place] % (Auto) 8 Eos % (Auto) 13 H Baso % (Auto) 1 Neut # (Auto) 3.2 Lymph # (Auto) 1.1 [place] # (Auto) 0.5 Eos # (Auto) 0.7 H Baso # (Auto) 0.1 Immature Gran # (Auto) 0.01 H Absolute Nucleated RBC 0.00 Immature Gran % 0 Nucleated RBC % 0 PT 11.2 INR 1.1 APTT 33.8 Sodium 140 141 Potassium 4.6 4.8 Chloride 103 105 Carbon Dioxide 27.2 26.9 Anion Gap 10 9 BUN 28 H 31 H Creatinine 4.6 H* D 4.9 H* Estim Creat Clear Calc Not Performed. Not Performed. eGFR 10 L* 9 L* BUN/Creatinine Ratio 6 L 6 L Glucose 90 74 Calculated Osmolality 284 286 Calcium 8.4 8.3 Corrected Calcium 9.0 9.0 Phosphorus 4.5 Magnesium 2.2 Total Bilirubin 0.2 L 0.3 Direct Bilirubin 0.1 AST 21 19 ALT 8 L 8 L Alkaline Phosphatase 110 108 Total Protein 6.4 6.3 Albumin 3.2 L 3.1 L Globulin 3.2 3.2 Albumin/Globulin Ratio 1.0 L 1.0 L Hepatitis A IgM Ab Non Reactive Hep Bs Antigen Non Reactive Hep Bs Antibody Reactive (Immune) Hep B Core IgM Ab Non Reactive Hepatitis C Antibody Non Reactive Quality Measures Quality Measures none Advance care planning discussed with:: patient Assessment & Plan Assessment Current Active Medications: Generic Name Dose Route Start Last Admin Trade Name Stephan PRN Reason Stop Dose Admin Acetaminophen 650 mg 08/03/25 22:32 Acetaminophen 325 Mg Tablet PO 09/02/25 22:31 Q6H PRN Fever >101.5 or pain 1-3 Hydrocodone Bitart/Acetaminophen 1 tab 08/03/25 23:55 Hydrocodone/Apap 5/325 Tablet PO 08/08/25 23:53 Q12HR PRN pain 7-10 Cephalexin HCl 500 mg 08/03/25 23:45 08/04/25 06:02 Cephalexin 250 Mg Capsule PO 08/10/25 23:44 500 mg QID MICHELLE Administration Fluconazole 100 mg 08/03/25 23:55 08/04/25 08:50 Fluconazole 100 Mg Tablet PO 08/10/25 23:54 100 mg QDAY MICHELLE Administration Heparin Sodium (Porcine) 3,200 unit 08/03/25 12:07 Heparin Sod Inj 1000 Unit/Ml Vial 10 Ml INDWELLCAT 08/17/25 12:06 PRN PRN DIALYSIS Albumin Human 25 gm in 100 mls @ 100 mls/hr 08/03/25 08:52 Albuminex 25% Ivpb IV Q30MIN PRN DIALYSIS Ondansetron HCl 4 mg 08/03/25 22:32 Ondansetron Inj 2 Mg/Ml Inj 2 Ml IVP 09/02/25 22:31 Q6H PRN NAUSEA OR VOMITING Protocol Plan Patient is a 65 year old female with past medical history of ESRD s/p right nephrectomy on dialysis //Thu who presents to the ED for protrusion of peritoneal catheter at right lower abdomen. Nephrology consulted for urgent dialysis s/p CT with contrast. #ESRD on dialysis TTS #S/p right nephrectomy - CT A/P with contrast showed necrotic mass in anterior pelvic wall suspicious for abscess at catheter site, also noted end stage calcified atrophic left kidney. - S/p dialysis 08/03 Plan: - No need for dialysis today as creatinine improved - If not discharged after catheter removal, plan for dialysis tomorrow per TTS schedule #Necrotic mass at anterior pelvic wall - Has had ongoing wounds around catheter site for the past 3 weeks per patient daughter. Completed IV abx course at dialysis session about 2 weeks ago. Initially, she developed open wound below catheter site, now catheter is now protruding from open wound medially from insertion site. - PD catheter initially placed in 2013. Scheduled for removal with surgeon Dr. Ng in [place] on 08/09. Plan: - Scheduled for PD catheter removal this afternoon - Abx and pain control per primary team #Choledocolithiasis - Defer to primary team for management Thank you for your consultation, please do not hesitate to reach out if you have any question or concern Patient plan of care was discussed with the attending physician, Dr. Palma. Clarisa Buck DO, PGY-1
[2025-08-04] MEDS: CEFEPIME INJ 1 GM in SODIUM CHLORIDE 0.9% (Popper) 50 ML IV (11:34)
[2025-08-04] MEDS: metroNIDAZOLE/NS 500 MG IVPB 500 MG/100 ML BAG 200 MG IV ×2 (11:40→22:52)
--- NOTE | 2025-08-04 14:06 | PC.NURSE ---
Pt went for surgery at 1406
--- NOTE | 2025-08-04 14:16 | ESPR_ITS ---
<Statement entered by Castro Crook MD - 08/04/25 17:10> Overnight admission. Seen and examined at bedside and resting comfortably in bed. Admitted for management of dysfunctional peritoneal dialysis catheter complicated by abdominal wall abscess and causing open wound underneath PD catheter insertion site. She went to OR today with general surgery and PD catheter was removed without complications. Antibiotics were broadened to cefepime and will continue with Flagyl and fluconazole. Regarding her choledocholithiasis, will recommend that patient follow-up with GI outpatient for ERCP as likely chronic and not an acute concern at this time due to normal LFTs and no right upper quadrant pain at rest or with meals. Nephrology consulted for ESRD as she scheduled on Thursday, , and Saturdays. ----- Note reviewed and agree with care plan as documented. Please refer to the note below for further details. Plan discussed with attending physician Dr. Hossein Crook MD PGY-2 Internal Medicine Documentation for date of: 08/04/25 Subjective Subjective Interval history: Overnight admission for dysfunctional peritoneal dialysis catheter complicated by abdominal wall abscess and causing open wound underneath PD catheter insertion site. Went to OR today with general surgery and PD catheter was removed without complications. Antibiotics were broadened to cefepime and will continue with Flagyl and fluconazole. Regarding choledocholithiasis, recommend outpatient follow-up with GI for ERCP and not an acute concern at this time due to normal LFTs and no right upper quadrant pain at rest or with meals. Nephrology consulted for ESRD as she scheduled on Thursday, , and Saturdays. Exam Vital Signs Temp Pulse Resp BP Pulse Ox O2 Del Method 97.4 F 62 18 156/86 H 99 Room Air 08/04/25 11:35 08/04/25 11:35 08/04/25 11:35 08/04/25 11:35 08/04/25 11:35 08/04/25 11:35 Narrative Exam General: AOx3, no acute distress, able to speak full sentences HEENT: NC/AT, mucous membranes moist, bilateral sclera anicteric Cardiovascular: regular rate and rhythm, S1/S2 present, no murmurs appreciated Pulmonary: clear to auscultation bilaterally, no rales/rhonchi/wheezes Abdominal: PD catheter in place with open wound underneath that was already dressed and PD catheter seen, no purulence Musculoskeletal: normal ROM, no peripheral edema Skin: warm and dry, intact, no rashes Neuro: CN II-XII intact, no focal deficits Objective Labs 08/05/25 04:40 08/05/25 04:40 Labs: Laboratory Results - last 24 hr 08/03/25 08/04/25 21:27 04:10 WBC 5.6 RBC 3.46 L Hgb 10.3 L Hct 34.2 L MCV 99 MCH 29.8 MCHC 30.1 L RDW Std Deviation 61.0 H Plt Count 185 D Neut % (Auto) 57 Lymph % (Auto) 20 [place] % (Auto) 8 Eos % (Auto) 13 H Baso % (Auto) 1 Neut # (Auto) 3.2 Lymph # (Auto) 1.1 [place] # (Auto) 0.5 Eos # (Auto) 0.7 H Baso # (Auto) 0.1 Immature Gran # (Auto) 0.01 H Absolute Nucleated RBC 0.00 Immature Gran % 0 Nucleated RBC % 0 PT 11.2 INR 1.1 APTT 33.8 Sodium 140 141 Potassium 4.6 4.8 Chloride 103 105 Carbon Dioxide 27.2 26.9 Anion Gap 10 9 BUN 28 H 31 H Creatinine 4.6 H* D 4.9 H* Estim Creat Clear Calc Not Performed. Not Performed. eGFR 10 L* 9 L* BUN/Creatinine Ratio 6 L 6 L Glucose 90 74 Calculated Osmolality 284 286 Calcium 8.4 8.3 Corrected Calcium 9.0 9.0 Phosphorus 4.5 Magnesium 2.2 Total Bilirubin 0.2 L 0.3 Direct Bilirubin 0.1 AST 21 19 ALT 8 L 8 L Alkaline Phosphatase 110 108 Total Protein 6.4 6.3 Albumin 3.2 L 3.1 L Globulin 3.2 3.2 Albumin/Globulin Ratio 1.0 L 1.0 L Quality Measures Quality Measures none Advance care planning discussed with:: patient and child Assessment & Plan Assessment Current Active Medications: Generic Name Dose Route Start Last Admin Trade Name Freq PRN Reason Stop Dose Admin Acetaminophen 650 mg 08/03/25 22:32 Acetaminophen 325 Mg Tablet PO 09/02/25 22:31 Q6H PRN Fever >101.5 or pain 1-3 Hydrocodone Bitart/Acetaminophen 1 tab 08/03/25 23:55 Hydrocodone/Apap 5/325 Tablet PO 08/08/25 23:53 Q12HR PRN pain 7-10 Fluconazole 100 mg 08/03/25 23:55 08/04/25 08:50 Fluconazole 100 Mg Tablet PO 08/10/25 23:54 100 mg QDAY MICHELLE Administration Heparin Sodium (Porcine) 3,200 unit 08/03/25 12:07 Heparin Sod Inj 1000 Unit/Ml Vial 10 Ml INDWELLCAT 08/17/25 12:06 PRN PRN DIALYSIS Albumin Human 25 gm in 100 mls @ 100 mls/hr 08/03/25 08:52 Albuminex 25% Ivpb IV Q30MIN PRN DIALYSIS Cefepime HCl 0.5 gm/ Sodium 50 mls @ 100 mls/hr 08/05/25 09:00 Chloride IV 08/12/25 08:59 QDAY MICHELLE Metronidazole 500 mg in 100 mls @ 200 mls/hr 08/04/25 11:00 08/04/25 11:40 Flagyl 500 Mg Iv IV 08/11/25 10:59 200 mls/hr Q12H MICHELLE Administration Ondansetron HCl 4 mg 08/03/25 22:32 Ondansetron Inj 2 Mg/Ml Inj 2 Ml IVP 09/02/25 22:31 Q6H PRN NAUSEA OR VOMITING Protocol Plan 65-year-old female with a history of ESRD on HD (TTS) and status post right nephrectomy who presented to [facility] ED on 08/03 for protrusion of her peritoneal dialysis catheter at her right lower abdomen. Patient was admitted for surgical removal of peritoneal dialysis catheter. #Abdominal wall cellulitis #Anterior pelvic wall necrotic mass/abscess #Defunct peritoneal dialysis catheter, status post removal Has had ongoing issue with wound in abdomen but presented as it was now open and PD catheter was seen. Per chart review, ongoing wounds at catheter site for the past 3 weeks and patient has completed a course of IV antibiotics after dialysis sessions about 2 weeks ago. On admission, left lower abdomen significantly tender to light palpation and draining purulent fluid with erythema surrounding peritoneal dialysis catheter site. CT abdomen/pelvis showed necrotic mass in anterior pelvic wall measuring 26 x 29 x 35 mm, suggestive of abscess. ? General Surgery consulted, appreciate recommendations ? Cefepime (08/04-) ? Flagyl (08/04-) ? Fluconazole (08/03-) ? Follow-up wound culture ? [place] for pain ? Wound care #Choledocolithiasis Noted to have choledocholithiasis with impaction incidentally on imaging. Remains afebrile, no leukocytosis, no jaundice, and no right upper quadrant pain to suggest acute cholangitis. LFTs within normal limits, t bili and ALP also within normal limits. MRCP on 08/03 showed extrahepatic biliary tree obstruction secondary to 4 mm impacted stone in the distal common bile duct. ? ED physician discussed case with general surgery, who recommends outpatient ERCP ? Continue to monitor daily CMP #ESRD on peritoneal dialysis (TTS) #Status post right nephrectomy History of ESRD previously on peritoneal dialysis, however the patient is not aware of the reason why she has ESRD. ? Nephrology consulted, appreciate recommendations ? Renally dose medications ? Avoid nephrotoxic agents when possible Hospital management: Disposition: IV antibiotics for abdominal wall abscess Fluids: none Diet: renal Lines: dialysis catheter, PIV DVT prophylaxis: SCDs GI prophylaxis: not indicated CODE STATUS: full code Patient seen and assessed under supervision of attending physician Dr. Phillips and discuss with senior resident Dr. Heber Crook PGY-2 Daphne Bergman MD PGY-1, Internal Medicine Please note: this document was transcribed using voice recognition technology; minor inaccuracies may be present. Attending Provider Attestation/Addendum I, Chely Catalan, , attest that I was physically present for the gordon portions of the service and evaluated the patient with the resident and I reviewed and discussed the case with the resident and agree with the resident's findings and plans of care as documented above Patient seen and evaluated this AM. Daughters at bedside. Patient has been having issues with PD catheter since July. She states that it began as what appeared to be a staph infection in the surrounding area of the PD catheter with small white ulcerations. She had received oral abx at urgent care with no improvement. She states that the infection progressed and the wound site began to tunnel with purulent drainage. She has been receiving IV abx with dialysis. Daughter has also been doing wound care at home. However, the PD catheter was noted to be visible from wound opening on Thursday, prompting the patient to come to ED yesterday. Patient denies any pain, fevers, chills, nausea, vomiting. CT done in ED showed a necrotic mass in the anterior pelvic wall, 26 x 29 x 35 mm. It also showed an incidental finding of distended gallbladder with gallstones. This was followed up with an MRCP that shows extrahepatic biliary duct dilatation due to 4mm impacted stone in distal CBD. However, LFTs have been within normal limits. Patient also has had no fevers or altered mental status. She denies any postprandial pain. Surgeon was called from ED and recommended outpatient follow up if LFTs remains normal, but necrotic mass should be first addressed as this is the acute issue. This was discussed again with patient and daughter at bedside, with which they are understanding that we are closely monitoring LFTs. Moreover, they are aware that if there are any signs of biliary obstruction during this admission, she will need a transfer for ERCP as we did not have the capability here in this hospital. Patient is currently NPO and pending surgery for removal of PD catheter. Will f/u with cultures at this time. Patient had been placed on cephalexin, but will cover for pseudomonas with cefepime and cover for anaerobes with flagyl as this is involving the abdominal cavity.
--- NOTE | 2025-08-04 15:13 | SUR.PHASEI ---
1513 patient arrived to recovery resting comfortably in [facility], awake and talking with staff, breathing unlabored, vital signs stable, denies pain and nasuea, dressing intact to abdomen; wet to dry fluffs, medipore tape, no bleeding noted, report recieved from Sherrill WOODRUFF and Dr. Landaverde
--- NOTE | 2025-08-04 15:26 | PD.SUROPNT ---
Date of Procedure 08/04/25 Pre Op Diagnosis Infected peritoneal dialysis catheter Post Op Diagnosis Infected peritoneal dialysis catheter Procedure Removal of intraperitoneal dialysis catheter Findings The tunneled aspect of PD catheter was exposed with skin and soft tissue infection Procedure Description Patient brought into operating room supine position. After administration of monitored anesthesia care, patient's abdomen prepped and draped in standard surgical manner. The skin around the PD catheter insertion and tunneled sites were anesthetized with half percent Marcaine. There was an open wound over the lateral aspect of PD catheter site with underlying soft tissue infection. The infected the skin and soft tissue were excised and debrided until healthy appearing skin and soft tissue encountered. The distal peritoneal dialysis catheter was from surrounding tissue and freed. The proximal cuff was just posterior to anterior abdominal fascia. The Was dissected and from abdominal fascia and freed, the peritoneal dialysis catheter was then removed. Anterior abdominal fascia was closed with a [id number] suture using 0 Prolene. The wound was washed and irrigated. Hemostasis achieved using electrocautery. The wound was packed with wet-to-dry dressings. She tolerated the procedure well. She was breathing spontaneously and without difficulty and was transferred to postanesthesia care in stable condition. Instruments, needles and sponge counts were reported to be correct x 2. Anesthesia MAC and local Pathology / specimen Other (Peritoneal dialysis catheter for gross inspection) Estimated Blood Loss 25 Condition Stable Disposition PACU Surgeon Jayla Thomas MD Surgical Staff Operation Date: 08/04/25 14:00 Case Staff Anesthesiologist: Regan Landaverde
--- NOTE | 2025-08-04 16:00 | SUR.PHASEI ---
1600 patient transported via gurney to room 377 without incident, by dane Baron to ride in hand during transport
--- NOTE | 2025-08-04 16:15 | PC.NURSE ---
Patient arrived back from surgery, dressing intact on left lower abdomen, patient denies any pain.
[2025-08-04] MEDS: ASCORBIC ACID 250 MG TABLET 500 MG PO (20:18)
[2025-08-04] MEDS: DOCUSATE SOD 100 MG CAPSULE PO (20:19)
[2025-08-05] VITALS (20 sets, daily range): BP systolic 119–158; BP diastolic 48–80; PULSE 60–79; RESP 16–98; TEMP 36.4–37.1; O2SAT 95–100; BMI 28.8
[2025-08-05 05:41] LABS: Basophils # (Auto) 0.1 Thou/mm3 (0.0-0.2); Basophils % (Auto) 1 % (0-2.5); Eosinophils # (Auto) 0.6 Thou/mm3 (0.0-0.5); Eosinophils % (Auto) 8 % (0-10); Hematocrit 33.7 % (36.0-46.0); Hemoglobin 10.2 g/dL (12.0-16.0); Immature Granulocytes Auto 0.02 Thou/mm3 (0.00-0.00); Lymphocytes # (Auto) 0.8 Thou/mm3 (1.0-4.8); Lymphocytes % (Auto) 12 % (10-50); Mean Corpuscular HGB Conc 30.3 g/dl (31.0-37.0); Mean Corpuscular Hemoglobin 29.7 pg (25.0-35.0); Mean Corpuscular Volume 98 fL (80-100); Monocytes # (Auto) 0.4 Thou/mm3 (0.0-0.8); Monocytes % (Auto) 5 % (0-12); Neutrophils # (Auto) 5.0 Thou/mm3 (1.8-7.7); Neutrophils % (Auto) 74 % (37-80); Nucleated Red Blood Cell # 0.00 Thou/mm3 (0.00-0.00); Nucleated Red Blood Cell % 0 /100 WBC (0); Platelet Count 206 Thou/mm3 (140-440); RDW Standard Deviation 59.7 fL (36.4-46.3); Red Blood Count 3.43 Miln/mm3 (4.00-5.20); White Blood Count 6.8 Thou/mm3 (3.6-11.0)
[2025-08-05 06:22] LABS: Anion Gap 12 (7-16); BUN/Creatinine Ratio 6 Ratio (12-20); Blood Urea Nitrogen 38 mg/dL (9-23); Calcium 8.2 mg/dL (8.3-10.6); Carbon Dioxide 24.7 mMol/L (20.0-31.0); Chloride 105 mMol/L (98-107); Creatinine (Component) 6.1 mg/dL (0.6-1.3); Estimated Creatinine Clearance 8.1 mL/min (>60); Glucose 75 mg/dL (74-106); Osmolality,Calculated 291 (275-295); Phosphorous 5.9 mg/dL (2.4-5.1); Potassium 5.3 mMol/L (3.4-5.1); Sodium 142 mMol/L (136-145); eGFR 7 See Note
[2025-08-05 06:23] LABS: Alanine Aminotransferase < 7 U/L (10-49); Albumin, Serum 3.0 gm/dL (3.4-4.8); Albumin/Globulin Ratio 1.0 (1.2-2.2); Alkaline Phosphatase 91 U/L (46-116); Aspartate Amino Transferase 17 U/L (0-34); Bilirubin,Total 0.3 mg/dL (0.3-1.2); Calcium (Corrected) 9.0 mg/dL (8.5-10.1); Globulin 3.1 gm/dL (2.3-3.5); Magnesium 2.3 mg/dL (1.6-2.6); Total Protein 6.1 gm/dL (5.7-8.2)
--- NOTE | 2025-08-05 08:18 | PC.NURSE ---
pt went to dialysis at 0818
--- NOTE | 2025-08-05 11:12 | PD.NEPHPROG ---
Documentation for date of: 08/05/25 Subjective Subjective Interval history: 65 year old female with past medical history of ESRD s/p right nephrectomy on dialysis //Thu who presents to the ED for protrusion of peritoneal catheter at right lower abdomen, originally placed in 2013. Per daughter at bedside, wound has been ongoing for the past month, previously received IV abx at dialysis center 2 weeks ago. Originally also had wound that opened below catheter site but healed without intervention. Had appointment on 08/[address] Ng in [place] for removal of peritoneal catheter. Patient has right chest HD catheter in place already. Patient is compliant with dialysis sessions, lives in [place]. Last HD session on Thursday. CT A/P with contrast showed necrotic mass in anterior pelvic wall suspicious for abscess at catheter site, also noted end stage calcified atrophic left kidney. Received urgent HD today. Surgeon Dr. Thomas will schedule patient for infected PD catheter removal and abscess drainage tomorrow morning. Given vanc in ED. Nephrology consulted for dialysis s/p CT A/P with contrast. Past Medical History: as above Family History: non contributory Surgical History: Right nephrectomy, panniculectomy (2020) Social History: Denies history of smoking, denies current alcohol use, denies recreational drug use Current Medications: pending med rec Allergies: No known drug allergies 08/04/25: Admitted overnight for removal of peritoneal dialysis catheter by surgery. Patient seen and examined at bedside. No complaints. Plan for I&D and dialysis catheter removal later this afternoon. 08/05/2025 patient currently seen on dialysis. Peritoneal dialysis catheter was removed by Dr. Thomas. Has an open wound. Will arrange home health care and antibiotics in the outpatient setting. Possible discharge tomorrow if stable. Spoke to primary team. Labs/medications reviewed. Review of Systems Review of Systems Narrative Review of Systems: CONSTITUTIONAL: Patient denies any fever, chills. HEENT: Denies any visual disturbances or hearing problems. CARDIOVASCULAR: Patient denies any chest pain, shortness of breath, swelling in the lower extremities. PULMONARY: Patient denies any shortness of breath, cough. GASTROINTESTINAL: Complaining of mild abdominal wall pain from the PD catheter removal GENITOURINARY: Patient denies any urinary symptoms of burning or frequency or hematuria, denies any form in the urine. SKIN: Denies any rash. MUSCULOSKELETAL: Denies any muscular skeletal problems of joint pains. NEUROLOGICAL: Denies any neurological problems of strokes, seizures or confusion. Denies any memory problems. PSYCHIATRIC: Denies any depression or anxiety. LYMPHATICS : No lymphadenopathy Exam Vital Signs Temp Pulse Resp BP Pulse Ox O2 Del Method 36.4 C 60 19 153/77 H 99 Room Air 08/05/25 08:40 08/05/25 11:00 08/05/25 09:48 08/05/25 11:00 08/05/25 08:40 08/05/25 08:00 Narrative Exam GENERAL APPEARANCE: Patient seems to be comfortable, adequately hydrated and nourished. On dialysis HEENT: EOMI, PERRLA NECK: Neck supple, no JVD or bruit CARDIOVASCULAR: Heart regular, no murmurs LUNGS/CHEST: Chest clear to auscultation. No rales, rhonchi, wheezing ABDOMEN: Soft, nontender, nondistended. No masses. Normal bowel sounds. PD cath removed with a dressing EXTREMITIES: No edema, clubbing or cyanosis. SKIN: Skin exam normal without any rashes. Right IJ dialysis catheter noted MUSCULOSKELETAL: Musculoskeletal exam normal PSYCHIATRIC: Normal mood, affect LYMPHATICS: No lymphadenopathy noted NEUROLOGICAL : No neurological deficits Objective Labs 08/06/25 04:37 08/06/25 04:37 Labs: Laboratory Results - last 24 hr 08/05/25 04:40 WBC 6.8 RBC 3.43 L Hgb 10.2 L Hct 33.7 L MCV 98 MCH 29.7 MCHC 30.3 L RDW Std Deviation 59.7 H Plt Count 206 Neut % (Auto) 74 Lymph % (Auto) 12 [place] % (Auto) 5 Eos % (Auto) 8 Baso % (Auto) 1 Neut # (Auto) 5.0 Lymph # (Auto) 0.8 L [place] # (Auto) 0.4 Eos # (Auto) 0.6 H Baso # (Auto) 0.1 Immature Gran # (Auto) 0.02 H Absolute Nucleated RBC 0.00 Immature Gran % 0 Nucleated RBC % 0 Sodium 142 Potassium 5.3 H D Chloride 105 Carbon Dioxide 24.7 Anion Gap 12 BUN 38 H Creatinine 6.1 H* D Estim Creat Clear Calc 8.1 L eGFR 7 L* BUN/Creatinine Ratio 6 L Glucose 75 Calculated Osmolality 291 Calcium 8.2 L Corrected Calcium 9.0 Phosphorus 5.9 H Magnesium 2.3 Total Bilirubin 0.3 AST 17 ALT < 7 L Alkaline Phosphatase 91 Total Protein 6.1 Albumin 3.0 L Globulin 3.1 Albumin/Globulin Ratio 1.0 L Assessment & Plan Assessment and plan (1) Peritoneal dialysis catheter exit site infection: Status: Acute Additional Assessment & Plan Additional Plan: Patient is a 65 year old female with past medical history of ESRD s/p right nephrectomy on dialysis //Thu who presents to the ED for protrusion of peritoneal catheter at right lower abdomen. Nephrology consulted for urgent dialysis s/p CT with contrast. #ESRD on dialysis TTS #S/p right nephrectomy - CT A/P with contrast showed necrotic mass in anterior pelvic wall suspicious for abscess at catheter site, also noted end stage calcified atrophic left kidney. - S/p dialysis 08/03 Plan: - Patient currently seen on dialysis. Tolerating dialysis without any problems. Hemodialysis for 3 hours, 2K, ultrafiltration 1 L, Epogen 6000, no heparin ordered. Plan of care discussed with the dialysis nurse. Please see dialysis flowsheet for further details. # Peritoneal dialysis catheter tunnel infection - PD cath removed by Dr. Thomas. Needs a p.o. and IV antibiotics for 2 weeks. # HTN low salt diet on amlodipine at home #Choledocolithiasis - Defer to primary team for management. Asymptomatic Care discussed with primary team. (1) Peritoneal dialysis catheter exit site infection Qualifiers: Encounter type: initial encounter Qualified Code(s): T85.71XA - Infection and inflammatory reaction due to peritoneal dialysis catheter, initial encounter
[2025-08-05] MEDS: HEPARIN SOD INJ 1000 UNIT/ML VIAL 10 ML 3200 UNIT INDWELLCAT (11:16)
--- NOTE | 2025-08-05 11:31 | PC.SS ---
SS was informed by Dr. Palma she is recommending Home Health for wound care. Pt and dtr do not have preference. SS left HH brochures at bedside for [facility], [facility], [facility], [facility], [facility] , [facility], and [facility]. Dtr is aware. Dtr states pt had HH about 2 months ago but is unable to recall name of the HH agency. Per dtr, pt followed up with physician assistance at [facility] due to her PCP, Ignrid Putnam being out of office since November 2024. Pt followed up with physician assistance in May or May.
[2025-08-05] MEDS: metroNIDAZOLE/NS 500 MG IVPB 500 MG/100 ML BAG 200 MG IV ×2 (11:59→22:24)
--- NOTE | 2025-08-05 12:30 | ESPR_ITS ---
<Statement entered by Alejandro Humphreys MD - 08/05/25 15:36> Patient was seen and examined at bedside while she is having dialysis. Patient was lying in bed comfortably. She denied any symptoms denied any fever or abdominal pain. General surgeon recommended dressing for the patient and can be discharged home with home health for wound care. Will DC the patient fluconazole as the patient has low risk of hide given fungal infection due to no persistent infection and no lab findings indicating fungal infection. Anticipated discharge tomorrow. - Patient's plan and care discussed with my attending, Dr. Hossein Humphreys MD Internal Medicine PGY-3 Documentation for date of: 08/05/25 Subjective Subjective Interval history: No acute event overnight. Patient seen and examined bedside patient has no acute complaints, denies shortness of breath, palpitation, abdominal pain, nausea, or vomiting. Vitals are stable. Labs reviewed and patient went for dialysis today. Discontinue fluconazole as there is no indication. Continue with cefepime and Flagyl. Anticipate discharge in next 24 to 48 hours with Home Health for wound care. Exam Vital Signs Temp Pulse Resp BP Pulse Ox O2 Del Method 98 F 62 19 143/74 H 99 Room Air 08/05/25 11:25 08/05/25 11:20 08/05/25 11:25 08/05/25 11:20 08/05/25 11:25 08/05/25 08:00 Narrative Exam General: Alert, no acute distress.Conversational and non-toxic appearing. Skin: Warm, dry, intact. No rash or ecchymoses. Head: Normocephalic, atraumatic. Eye: Normal conjunctiva, PERRL. Throat: Oral mucosa moist. No obvious lesions in oropharynx. Cardiovascular: Regular rate and rhythm, no murmur, +S1/S2. Respiratory: Lungs are clear to auscultation, respirations unlabored, no crackles, no wheezing. Gastrointestinal: Soft, no bleeding or drainage from the wound at this time, nontender, non-distended. No guarding or rebound tenderness. Extremities: No edema, no cyanosis, no clubbing. Neuro: Alert and oriented x3.No focal deficits observed. Conversant, moving all extremities. No overt cerebellar signs/incoordination. Psychiatric: Cooperative, appropriate affect Objective Labs 08/05/25 04:40 08/05/25 04:40 Labs: Laboratory Results - last 24 hr 08/05/25 04:40 WBC 6.8 RBC 3.43 L Hgb 10.2 L Hct 33.7 L MCV 98 MCH 29.7 MCHC 30.3 L RDW Std Deviation 59.7 H Plt Count 206 Neut % (Auto) 74 Lymph % (Auto) 12 [place] % (Auto) 5 Eos % (Auto) 8 Baso % (Auto) 1 Neut # (Auto) 5.0 Lymph # (Auto) 0.8 L [place] # (Auto) 0.4 Eos # (Auto) 0.6 H Baso # (Auto) 0.1 Immature Gran # (Auto) 0.02 H Absolute Nucleated RBC 0.00 Immature Gran % 0 Nucleated RBC % 0 Sodium 142 Potassium 5.3 H D Chloride 105 Carbon Dioxide 24.7 Anion Gap 12 BUN 38 H Creatinine 6.1 H* D Estim Creat Clear Calc 8.1 L eGFR 7 L* BUN/Creatinine Ratio 6 L Glucose 75 Calculated Osmolality 291 Calcium 8.2 L Corrected Calcium 9.0 Phosphorus 5.9 H Magnesium 2.3 Total Bilirubin 0.3 AST 17 ALT < 7 L Alkaline Phosphatase 91 Total Protein 6.1 Albumin 3.0 L Globulin 3.1 Albumin/Globulin Ratio 1.0 L Quality Measures Quality Measures VTE prophylaxis Advance care planning discussed with:: patient and child Assessment & Plan Assessment Current Active Medications: Generic Name Dose Route Start Last Admin Trade Name Freq PRN Reason Stop Dose Admin Acetaminophen 650 mg 08/03/25 22:32 Acetaminophen 325 Mg Tablet PO 09/02/25 22:31 Q6H PRN Fever >101.5 or pain 1-3 Hydrocodone Bitart/Acetaminophen 1 tab 08/03/25 23:55 Hydrocodone/Apap 5/325 Tablet PO 08/08/25 23:53 Q12HR PRN pain 7-10 Ascorbic Acid 500 mg 08/04/25 21:00 08/05/25 08:59 Ascorbic Acid 250 Mg Tablet PO 09/03/25 20:59 Not Given BID MICHELLE Docusate Sodium 100 mg 08/04/25 21:00 08/05/25 08:59 Docusate Sod 100 Mg Capsule PO 09/03/25 20:[address] [facility] Protocol Heparin Sodium (Porcine) 3,200 unit 08/03/25 12:07 08/05/25 11:16 Heparin Sod Inj 1000 Unit/Ml Vial 10 Ml INDWELLCAT 08/17/25 12:06 3,200 unit PRN PRN Administration DIALYSIS Albumin Human 25 gm in 100 mls @ 100 mls/hr 08/03/25 08:52 Albuminex 25% Ivpb IV Q30MIN PRN DIALYSIS Cefepime HCl 0.5 gm/ Sodium 50 mls @ 100 mls/hr 08/05/25 09:00 08/05/25 08:59 Chloride IV 08/12/25 08:59 Not Given QDAY MICHELLE Metronidazole 500 mg in 100 mls @ 200 mls/hr 08/04/25 11:00 08/05/25 11:59 Flagyl 500 Mg Iv IV 08/11/25 10:59 200 mls/hr Q12H MICHELLE Administration Morphine Sulfate 2 mg 08/04/25 16:16 Morphine Sulf Inj 4 Mg/Ml Vial IVP 08/07/25 16:15 Q2H PRN PAIN SCALE 7-10 (Severe Ondansetron HCl 4 mg 08/03/25 22:32 Ondansetron Inj 2 Mg/Ml Inj 2 Ml IVP 09/02/25 22:31 Q6H PRN NAUSEA OR VOMITING Protocol Zinc Sulfate 220 mg 08/05/25 09:00 08/05/25 08:59 Zinc Sulfate 220 Mg Capsule PO 09/04/25 08:59 Not Given QDAY MICHELLE Plan 65-year-old female with a history of ESRD on HD (TTS) and status post right nephrectomy who presented to [facility] ED on 08/03 for protrusion of her peritoneal dialysis catheter at her right lower abdomen. Patient was admitted for surgical removal of peritoneal dialysis catheter. #Abdominal wall cellulitis #Anterior pelvic wall necrotic mass/abscess #Defunct peritoneal dialysis catheter, status post removal POD1 Has had ongoing issue with wound in abdomen but presented as it was now open and PD catheter was seen. Per chart review, ongoing wounds at catheter site for the past 3 weeks and patient has completed a course of IV antibiotics after dialysis sessions about 2 weeks ago. On admission, left lower abdomen significantly tender to light palpation and draining purulent fluid with erythema surrounding peritoneal dialysis catheter site. CT abdomen/pelvis showed necrotic mass in anterior pelvic wall measuring 26 x 29 x 35 mm, suggestive of abscess. -Fluconazole (08/03-08/05) Plan ? General Surgery consulted, appreciate recommendations-discharge from surgery standpoint ? Cefepime (08/04-) ? Flagyl (08/04-) ? Wound culture, pending ? [place] for pain ? Wound care #Choledocolithiasis Noted to have choledocholithiasis with impaction incidentally on imaging. Remains afebrile, no leukocytosis, no jaundice, and no right upper quadrant pain to suggest acute cholangitis. LFTs within normal limits, t bili and ALP also within normal limits. MRCP on 08/03 showed extrahepatic biliary tree obstruction secondary to 4 mm impacted stone in the distal common bile duct. ? ED physician discussed case with general surgery, who recommends outpatient ERCP ? Continue to monitor daily CMP #ESRD on peritoneal dialysis (TTS) #Status post right nephrectomy History of ESRD previously on peritoneal dialysis, however the patient is not aware of the reason why she has ESRD. ? Nephrology consulted, appreciate recommendations ? Renally dose medications ? Avoid nephrotoxic agents when possible Hospital management: Disposition: IV antibiotics for abdominal wall abscess Fluids: none Diet: renal Lines: dialysis catheter, PIV DVT prophylaxis: SCDs GI prophylaxis: not indicated CODE STATUS: full code Patient seen and assessed under supervision of attending physician Dr. Phillips and discuss with senior resident Dr. Humphreys PGY-3 Daphne Bergman MD PGY-1, Internal Medicine Please note: this document was transcribed using voice recognition technology; minor inaccuracies may be present. Attending Provider Attestation/Addendum I, Chely Catalan, , attest that I was physically present for the gordon portions of the service and evaluated the patient with the resident and I reviewed and discussed the case with the resident and agree with the resident's findings and plans of care as documented above Patient seen and eval this a.m. She states that she is feeling well and tolerated procedure well yesterday. Culture from peritoneal catheter removal procedure is still pending. Case discussed in detail with nephrology. Anticipate discharge within the next 24 hours if patient condition remains stable and afebrile. Home health for wound care has been ordered.
--- NOTE | 2025-08-05 12:57 | PD.SURPROG ---
Documentation for date of: 08/05/25 Subjective Subjective Narrative: Patient is seen and examined. Her pain is controlled Exam Vital Signs Temp Pulse Resp BP Pulse Ox O2 Del Method 98.2 F 64 16 142/79 H 99 Room Air 08/05/25 12:00 08/05/25 12:00 08/05/25 12:00 08/05/25 12:00 08/05/25 12:00 08/05/25 12:00 Constitutional Constitutional: no acute distress Routine Abdominal Exam Comments: Abdomen is soft and nondistended. No bleeding or drainage from the wound at this time Assessment & Plan Assessment Additional comments: Postop day #1 status post removal of peritoneal dialysis catheter and debridement of infected abdominal wall wound Plan Packing is changed. Wound care as directed and continue IV antibiotics. Possible discharge home tomorrow PROCEDURES: Procedures Removal of intraperitoneal dialysis catheter
[2025-08-05] MEDS: ASCORBIC ACID 250 MG TABLET 500 MG PO (20:46)
[2025-08-06] VITALS: BP 114/63; PULSE 59; RESP 16; TEMP 36.6; O2SAT 96
[2025-08-06 04:00] VITALS: BP 132/72; PULSE 64; RESP 16; TEMP 36.5; O2SAT 98
[2025-08-06 06:07] LABS: Basophils # (Auto) 0.0 Thou/mm3 (0.0-0.2); Basophils % (Auto) 1 % (0-2.5); Eosinophils # (Auto) 0.6 Thou/mm3 (0.0-0.5); Eosinophils % (Auto) 13 % (0-10); Hematocrit 32.0 % (36.0-46.0); Hemoglobin 9.8 g/dL (12.0-16.0); Immature Granulocytes Auto 0.01 Thou/mm3 (0.00-0.00); Lymphocytes # (Auto) 0.9 Thou/mm3 (1.0-4.8); Lymphocytes % (Auto) 20 % (10-50); Mean Corpuscular HGB Conc 30.6 g/dl (31.0-37.0); Mean Corpuscular Hemoglobin 30.1 pg (25.0-35.0); Mean Corpuscular Volume 98 fL (80-100); Monocytes # (Auto) 0.4 Thou/mm3 (0.0-0.8); Monocytes % (Auto) 8 % (0-12); Neutrophils # (Auto) 2.8 Thou/mm3 (1.8-7.7); Neutrophils % (Auto) 59 % (37-80); Nucleated Red Blood Cell # 0.00 Thou/mm3 (0.00-0.00); Nucleated Red Blood Cell % 0 /100 WBC (0); Platelet Count 156 Thou/mm3 (140-440); RDW Standard Deviation 60.0 fL (36.4-46.3); Red Blood Count 3.26 Miln/mm3 (4.00-5.20); White Blood Count 4.8 Thou/mm3 (3.6-11.0)
[2025-08-06 06:44] LABS: Albumin, Serum 2.9 gm/dL (3.4-4.8); Albumin/Globulin Ratio 0.9 (1.2-2.2); Alkaline Phosphatase 98 U/L (46-116); Anion Gap 11 (7-16); Aspartate Amino Transferase 18 U/L (0-34); BUN/Creatinine Ratio 6 Ratio (12-20); Bilirubin,Total 0.3 mg/dL (0.3-1.2); Blood Urea Nitrogen 27 mg/dL (9-23); Calcium 8.1 mg/dL (8.3-10.6); Calcium (Corrected) 9.0 mg/dL (8.5-10.1); Carbon Dioxide 24.9 mMol/L (20.0-31.0); Chloride 106 mMol/L (98-107); Creatinine (Component) 4.9 mg/dL (0.6-1.3); Estimated Creatinine Clearance 10.3 mL/min (>60); Globulin 3.2 gm/dL (2.3-3.5); Glucose 77 mg/dL (74-106); Magnesium 2.2 mg/dL (1.6-2.6); Osmolality,Calculated 287 (275-295); Phosphorous 4.7 mg/dL (2.4-5.1); Potassium 4.8 mMol/L (3.4-5.1); Sodium 142 mMol/L (136-145); Total Protein 6.1 gm/dL (5.7-8.2); eGFR 9 See Note
[2025-08-06 06:51] LABS: Alanine Aminotransferase < 7 U/L (10-49)
[2025-08-06 08:00] VITALS: BP 125/69; PULSE 86; RESP 17; TEMP 37.1; O2SAT 94
[2025-08-06] MEDS: DOCUSATE SOD 100 MG CAPSULE PO (08:23)
[2025-08-06] MEDS: ZINC SULFATE 220 MG CAPSULE PO (08:23)
[2025-08-06] MEDS: ASCORBIC ACID 250 MG TABLET 500 MG PO (08:23)
[2025-08-06 09:33] VITALS: PULSE 54; RESP 19; RESP 95
--- NOTE | 2025-08-06 10:19 | PD.NEPHPROG ---
Documentation for date of: 08/06/25 Subjective Subjective Interval history: 65 year old female with past medical history of ESRD s/p right nephrectomy on dialysis //Thu who presents to the ED for protrusion of peritoneal catheter at right lower abdomen, originally placed in 2013. Per daughter at bedside, wound has been ongoing for the past month, previously received IV abx at dialysis center 2 weeks ago. Originally also had wound that opened below catheter site but healed without intervention. Had appointment on 08/[address] Ng in [place] for removal of peritoneal catheter. Patient has right chest HD catheter in place already. Patient is compliant with dialysis sessions, lives in [place]. Last HD session on Thursday. CT A/P with contrast showed necrotic mass in anterior pelvic wall suspicious for abscess at catheter site, also noted end stage calcified atrophic left kidney. Received urgent HD today. Surgeon Dr. Thomas will schedule patient for infected PD catheter removal and abscess drainage tomorrow morning. Given vanc in ED. Nephrology consulted for dialysis s/p CT A/P with contrast. Past Medical History: as above Family History: non contributory Surgical History: Right nephrectomy, panniculectomy (2020) Social History: Denies history of smoking, denies current alcohol use, denies recreational drug use Current Medications: pending med rec Allergies: No known drug allergies 08/04/25: Admitted overnight for removal of peritoneal dialysis catheter by surgery. Patient seen and examined at bedside. No complaints. Plan for I&D and dialysis catheter removal later this afternoon. 08/05/2025 patient currently seen on dialysis. Peritoneal dialysis catheter was removed by Dr. Thomas. Has an open wound. Will arrange home health care and antibiotics in the outpatient setting. Possible discharge tomorrow if stable. Spoke to primary team. Labs/medications reviewed. 08/06/2025 status post PD catheter removal. Patient will be discharged home today on p.o. antibiotics and wound care. Spoke to primary team. Next dialysis scheduled for Thursday Review of Systems Review of Systems Narrative Review of Systems: CONSTITUTIONAL: Patient denies any fever, chills. HEENT: Denies any visual disturbances or hearing problems. CARDIOVASCULAR: Patient denies any chest pain, shortness of breath, swelling in the lower extremities. PULMONARY: Patient denies any shortness of breath, cough. GASTROINTESTINAL: Complaining of mild abdominal wall pain from the PD catheter removal GENITOURINARY: Patient denies any urinary symptoms of burning or frequency or hematuria, denies any form in the urine. SKIN: Denies any rash. MUSCULOSKELETAL: Denies any muscular skeletal problems of joint pains. NEUROLOGICAL: Denies any neurological problems of strokes, seizures or confusion. Denies any memory problems. PSYCHIATRIC: Denies any depression or anxiety. LYMPHATICS : No lymphadenopathy Exam Vital Signs Temp Pulse Resp BP Pulse Ox O2 Del Method 37.1 C 54 L 19 125/69 94 L Room Air 08/06/25 08:00 08/06/25 09:33 08/06/25 09:33 08/06/25 08:00 08/06/25 08:00 08/06/25 08:00 Narrative Exam GENERAL APPEARANCE: Patient seems to be comfortable, adequately hydrated and nourished. HEENT: EOMI, PERRLA NECK: Neck supple, no JVD or bruit CARDIOVASCULAR: Heart regular, no murmurs LUNGS/CHEST: Chest clear to auscultation. No rales, rhonchi, wheezing ABDOMEN: Soft, nontender, nondistended. No masses. Normal bowel sounds. PD cath removed with a dressing EXTREMITIES: No edema, clubbing or cyanosis. SKIN: Skin exam normal without any rashes. Right IJ dialysis catheter noted MUSCULOSKELETAL: Musculoskeletal exam normal PSYCHIATRIC: Normal mood, affect LYMPHATICS: No lymphadenopathy noted NEUROLOGICAL : No neurological deficits Objective Labs 08/06/25 04:37 08/06/25 04:37 Labs: Laboratory Results - last 24 hr 08/06/25 04:37 WBC 4.8 RBC 3.26 L Hgb 9.8 L Hct 32.0 L MCV 98 MCH 30.1 MCHC 30.6 L RDW Std Deviation 60.0 H Plt Count 156 D Neut % (Auto) 59 Lymph % (Auto) 20 [place] % (Auto) 8 Eos % (Auto) 13 H Baso % (Auto) 1 Neut # (Auto) 2.8 Lymph # (Auto) 0.9 L [place] # (Auto) 0.4 Eos # (Auto) 0.6 H Baso # (Auto) 0.0 Immature Gran # (Auto) 0.01 H Absolute Nucleated RBC 0.00 Immature Gran % 0 Nucleated RBC % 0 Sodium 142 Potassium 4.8 D Chloride 106 Carbon Dioxide 24.9 Anion Gap 11 BUN 27 H Creatinine 4.9 H* D Estim Creat Clear Calc 10.3 L eGFR 9 L* BUN/Creatinine Ratio 6 L Glucose 77 Calculated Osmolality 287 Calcium 8.1 L Corrected Calcium 9.0 Phosphorus 4.7 Magnesium 2.2 Total Bilirubin 0.3 AST 18 ALT < 7 L Alkaline Phosphatase 98 Total Protein 6.1 Albumin 2.9 L Globulin 3.2 Albumin/Globulin Ratio 0.9 L Assessment & Plan Assessment and plan (1) Peritoneal dialysis catheter exit site infection: Status: Acute Additional Assessment & Plan Additional Plan: Patient is a 65 year old female with past medical history of ESRD s/p right nephrectomy on dialysis //Thu who presents to the ED for protrusion of peritoneal catheter at right lower abdomen. Nephrology consulted for urgent dialysis s/p CT with contrast. #ESRD on dialysis TTS #S/p right nephrectomy - CT A/P with contrast showed necrotic mass in anterior pelvic wall suspicious for abscess at catheter site, also noted end stage calcified atrophic left kidney. - S/p dialysis 08/03 Plan: HD TTS # Peritoneal dialysis catheter tunnel infection - PD cath removed by Dr. Thomas. Needs a p.o.antibiotics for 2 weeks. # HTN low salt diet on amlodipine at home #Choledocolithiasis - Defer to primary team for management. Asymptomatic Care discussed with primary team. (1) Peritoneal dialysis catheter exit site infection Qualifiers: Encounter type: initial encounter Qualified Code(s): T85.71XA - Infection and inflammatory reaction due to peritoneal dialysis catheter, initial encounter
--- NOTE | 2025-08-06 10:27 | PD.SURPROG ---
Documentation for date of: 08/06/25 Subjective Subjective Narrative: Patient is seen and examined. Pain is improving Exam Vital Signs Temp Pulse Resp BP Pulse Ox O2 Del Method 98.7 F 54 L 19 125/69 94 L Room Air 08/06/25 08:00 08/06/25 09:33 08/06/25 09:33 08/06/25 08:00 08/06/25 08:00 08/06/25 08:00 Constitutional Constitutional: no acute distress Routine Abdominal Exam Comments: Abdomen is soft and nondistended. No bleeding or drainage from the wound Assessment & Plan Assessment Additional comments: Postop day #2 status post removal of intraperitoneal dialysis catheter Plan Continue wound care as directed. May discharge home. Follow-up with Dr Thomas in 2 weeks PROCEDURES: Procedures Removal of intraperitoneal dialysis catheter
[2025-08-06 12:00] VITALS: BP 135/78; PULSE 61; RESP 17; TEMP 37.3; O2SAT 97
--- NOTE | 2025-08-06 15:23 | ESDS_ITS ---
<Statement entered by Chely Catalan DO - 08/07/25 08:20> I, Chely Catalan DO, attest that I was physically present for the gordon portions of the service and evaluated the patient with the resident and I reviewed and discussed the case with the resident and agree with the resident's findings and plans of care as documented above <Statement entered by Castro Crook MD - 08/06/25 15:56> Note reviewed and agree with care plan as documented. Please refer to the note below for further details. Plan discussed with attending physician Dr. Hossein Crook MD PGY-2 Internal Medicine Planned Discharge Date 08/06/25 DS: Providers Provider Date of admission: 08/03/25 22:32 Primary care physician: Ingrid Putnam DO Admitting Provider: Mariza Mantilla MD Attending Provider on Admission: Mariza Mantilla MD Consults: 08/03/25 10:42 Consult to General Surgery Stat Comment: Consulting Provider: Jayla Thomas 08/03/25 15:20 Consult to Nephrology Stat Comment: Consulting Provider: Jennifer Palma 08/04/25 01:24 Referral Infection Control Routine Comment: Reason for Infection Control Referral: Current Dialysis Patient 08/04/25 03:12 Referral Registered Dietitian Routine Comment: Referral Wound Care Routine Comment: Attending Provider on DC: Darrin Noble MD Discharging Provider: Darrin Noble MD DS: Diagnosis Problem List Completed Was Problem List Reviewed/Reconciled?: Yes Hospital Course Hospital Course Hospital course: 65 F w/ PMH of ESRD, nephrectomy of R kidney on hemodialysis TTS and previously on peritoneal dialysis w/ catheter came to [facility] for surgical removal of a peritoneal dialysis catheter after it was found to be protruding in her right lower abdomen. Previously scheduled for removal on 08/09 w/ Dr. Roman Bettencourt but urgent symptoms warranted admission to [facility]. GB US positive for stones, surgery recommending outpt ERCP for further workup. CT Abdomen pelvis revealed fluid collection around the catheter, and she was admitted to medicine for antibiotics as well as surgical intervention. The catheter was removed, along with abscess debridement by Dr. Thomas on 08/04. Her post-operative course was has been uncomplicated, and she has remained afebrile and has resumed normal activity. She was safely discharged home on 08/06 to finish a course of oral antibiotics and to follow up with Dr. Thomas in two weeks. Diagnoses during admission: #Abdominal wall cellulitis #Anterior pelvic wall necrotic mass/abscess #Defunct peritoneal dialysis catheter, status post removal #Choledocolithiasis #ESRD on peritoneal dialysis (TTS) #Status post right nephrectomy Discharge instructions: -Follow-up with your PCP within 1-2 weeks of discharge -Follow up with Dr. Thomas in two weeks since operation 08/04 -Take your antibiotics for 12 more days to complete your course (ciprofloxacin and metronidazole) -Follow up with hemodialysis appointments MWF -Address gallstones w/ possible elective ERCP outpatient with GI (obtain referral from your PCP) -Please return to the ED for any nausea, vomiting, fever or progressively worsening abdominal pain -Please follow up outpatient for pulmonary node on CT scan as outpatient with CT Chest w/ contrast EULOGIO -Return to the ED if symptoms worsen or recur ----- Plan discussed with attending physician Dr. Catalan and senior resident Dr. Ambreen Noble MD PGY-1 Status at Discharge Cognitive/behavioral status at discharge: baseline Time Spent with Patient Time attestation: Total time spent providing and/or coordinating discharge services: 60 minutes Time spent: Greater than 30 minutes Home Health Home Health Referral Orders: 08/05/25 11:09 Home Health Referral Routine Reason For Exam: infected peritoneal dialysis catheter Home-Bound The patient must either because of illness or injury, need the aid of supportive devices such as crutches, canes, wheelchairs, and walkers; the use of special transportation; or the assistance of another person in order to leave their place of residence; OR have a condition such that leaving his or her home is medically contraindicated. In addition, the patient also meets the following criteria: patient is normally unable to leave the home and leaving home requires considerable taxing effort. Addendum to Home Health Certification Practitioner's Certification: I certify that the patient has been under my care in the hospital and the care of attending physician (see below). We had a [id number] encounter on (see date below). My clinical findings indicate that the patient is home bound per the above criteria and the Home Health Services noted in these orders are medically necessary. The primary reason for the [id number]-[id number] encounter is related to the fact that the patient requires home health services. Date Certifying Rapj-ie-Cxit Physician Encounter: 08/03/25 Physician's Name who will Assume Oversight for Services: Ingrid Putnam Physician's Phone No.who will Assume Oversight for Service: PRODUCTION DISPATCHER - Community Resources: No PT to Evaluate: No PT to evaluate and provide a treatmnet plan to increase patient's mobility and strength. Wound Care: Yes Home Health RN - Wound Care Order: as per wound nurse instructions IV Therapy: No RN Safety Evaluation: Yes RN to evaluate and create a plan of care that will produce positive outcomes. Palliative Treatment: No Palliative treatment and evaluate the need for hospice. Home Health Aide - Personal Care: Yes Home Health Aide to assist with any ADL's. Exam Vital Signs Temp Pulse Resp BP Pulse Ox O2 Del Method 99.1 F 61 17 135/78 H 97 Room Air 08/06/25 12:08/06/25 12:08/06/25 12:08/06/25 12:08/06/25 12:08/06/25 12:00 Narrative Exam General: alert and oriented to self/place/year, no acute distress, able to speak full sentences HEENT: NC/AT, mucous membranes moist, bilateral sclera anicteric Cardiovascular: regular rate and rhythm, S1/S2 present, no murmurs appreciated Pulmonary: clear to auscultation bilaterally, no rales/rhonchi/wheezes Abdominal: Wound dressing in place with miniml serosanguenous drainage. No overlying errythema concerning for infection/cellulitis. No pain on palpation Musculoskeletal: no peripheral edema Skin: Warm, well-perfused Discharge Plan Plan Patient Disposition: Home w/HOME HEALTH Patient condition on transfer: Stable Care Plan Goals: -Follow-up with your PCP within 1-2 weeks of discharge -Follow up with Dr. Thomas in two weeks since operation 08/04 -Take your antibiotics for 12 more days to complete your course (ciprofloxacin and metronidazole) -Follow up with hemodialysis appointments [facility] -Address gallstones w/ possible elective ERCP outpatient with GI (obtain referral from your PCP) -Please return to the ED for any nausea, vomiting, fever or progressively worsening abdominal pain -Please follow up outpatient for pulmonary node on CT scan as outpatient with CT Chest w/ contrast EULOGIO -Return to the ED if symptoms worsen or recur Prescriptions/Referrals Prescriptions/Med Rec: New ascorbic acid (vitamin C) 500 mg capsule 500 mg PO BID 30 Days Qty: 60 0RF zinc sulfate 50 mg zinc (220 mg) Capsule 220 mg PO QDAY 30 Days Qty: 30 0RF ciprofloxacin HCl 500 mg tablet 500 mg PO QDAY 12 Days Qty: 12 0RF metronidazole 500 mg tablet 500 mg PO BID 12 Days Qty: 24 0RF Continued midodrine 10 mg tablet 10 mg PO BID PRN (Reason: low blood pressure) Rx Instructions: do not give last dose of day after 6PM or within 4 hrs of bedtime sertraline 50 mg tablet 50 mg PO DAILY calcium acetate 667 mg tablet 667 mg PO TIDWMEAL Dialyvite 800 0.8 mg tablet 1 tab PO QDAY Held amlodipine [Norvasc] 10 MG tablet 10 mg PO QDAY Qty: 0 Hold Instructions: Hold until you follow-up with your PCP Discontinued ferrous sulfate [Feosol] 1 TAB tablet 325 mg PO BIDWM Qty: 0 Ondansetron Hcl * (ZOFRAN *) 4 MG tablet 4 mg PO Q12H PRN (Reason: NAUSEA OR VOMITING) Qty: 0 Hydrocodone/Acetaminophen * (NORCO 7.5/325 *) 1 TAB tablet 1 tab PO Q6H PRN (Reason: ABDOMINAL PAIN) Qty: 30 0RF Referrals: Ingrid Putnam DO [Primary Care Provider] Patient/Caregiver Discharge Instructions Other Discharge Activity Instructions:: -Follow-up with your PCP within 1-2 weeks of discharge -Follow up with Dr. Thomas in two weeks since operation 08/04 -Take your antibiotics for 12 more days to complete your course (ciprofloxacin and metronidazole) -Follow up with hemodialysis appointments MWF -Address gallstones w/ possible elective ERCP outpatient with GI (obtain referral from your PCP) -Please return to the ED for any nausea, vomiting, fever or progressively worse lynn abdominal pain -Please follow up outpatient for pulmonary node on CT scan as outpatient with CT Chest w/ contrast -Return to the ED if symptoms worsen or recur Education Materials: ED Pulmonary Nodule, Solitary, ED Wound Check (Infection), ED Wound Care Print Language: Danish Stand Alone Forms: [employer]ila Award Info., Patient Portal Info Letter Discharge Order Discharge Orders: Discharge (Routine); Ordered 08/06/25 Ordered By: Castro Crook Quality Discharge Quality Measures none
--- NOTE | 2025-08-07 07:16 | PC.CC ---
HH ref sent yesterday, [facility] accepted and booked. Soc 08/08/25
== END 2025-08-06 12:15 | disposition home health service (06) | DRG 907 ==
LOC: SERX 08-03 20:46 → SERHOLD 08-03 22:46 → S3SX 08-04 00:30
PROVIDERS: Emergency Medicine; Internal Medicine; Surgery; Admitting Provider Student in an Organized Health Care Education/Training Program; Emergency Provider Emergency Medicine; PCP Family Medicine; Visit Provider Student in an Organized Health Care Education/Training Program
PROC: (CPT 49422; principal; 2025-08-04 14:00)
DX: T85.71XA Infection and inflammatory reaction due to peritoneal dialysis catheter, initial encounter (principal); N18.6 End stage renal disease; K80.71 Calculus of gallbladder and bile duct without cholecystitis with obstruction; L03.311 Cellulitis of abdominal wall; I12.0 Hypertensive chronic kidney disease with stage 5 chronic kidney disease or end stage renal disease; L02.211 Cutaneous abscess of abdominal wall; Z99.2 Dependence on renal dialysis; Z90.5 Acquired absence of kidney; Y83.8 Other surgical procedures as the cause of abnormal reaction of the patient, or of later complication, without mention of misadventure at the time of the procedure; K82.8 Other specified diseases of gallbladder
CPT/HCPCS: 36415; 74177; 74181; 76705; 80053; 80074; 80076; 83735; 84100; 85025; 85610; 85730; 86706; 87070; 87081; 87205; 90935; 96365; 96366; 99284; A4649; J0692; J1643; J2704; J3373; J3490; J7050; Q9967; A9270; G0257; J1836